=== PATIENT | female | born 1950 | race Caucasian/White ===

== ENCOUNTER 2020-10-28 11:04 | Inpatient (IN) ==
--- NOTE | 2020-10-28 13:09 | Emergency Department Note ---
Fall HPI General Chief Complaint: Fall Stated Complaint: fall Time Seen by Provider: 10/28/20 11:12 Source: patient Mode of arrival: ambulatory History of Present Illness HPI Narrative: Patient is a 70-year-old lady who arrives emergency department fall. History is provided by paramedics permission obtained from the patient's metal products fabricator assembler as well as the patient herself. The patient fell around 11:00 last night and paramedics were called for lift assist to her house. They assisted her to her feet and she declined transport to the hospital. She fell once again at some point in the night her low she cannot remember when. Her metal products fabricator assembler arrived to find her on the floor once again so she called 911 and the patient was transported to the emergency department. Currently, she is experiencing pain in her left hip. She denies any other obvious injuries. Patient's metal products fabricator assembler does note that she has seemed more confused than usual lately. The patient says she has been wearing the same undergarments for the past week but the metal products fabricator assembler points out that the patient has daily help and has certainly been assisted with changing several times in the past week. Related Data Home Medications Medication Instructions Recorded Confirmed albuterol sulfate 2 puff INH Q4HP PRN 03/08/17 10/28/20 ipratropium bromide 1 puff INH BID 03/08/17 10/28/20 Previous Rx's Medication Instructions Recorded insulin aspart U-100 100 unit/mL 4 unit SUB-Q .Before Meal #15 ml 06/11/19 (3 mL) subcutaneous pen blood sugar diagnostic #100 each 02/01/20 blood-glucose meter #1 each 02/01/20 levothyroxine 137 mcg tablet 137 mcg PO QDAY #90 tab 02/07/20 clopidogrel 75 mg tablet 75 mg PO DAILY #90 tab 05/02/20 montelukast 10 mg tablet See Rx Instructions .ROUTE 05/15/20 .COMPLEX #90 tab famotidine 20 mg tablet See Rx Instructions .ROUTE 05/22/20 .COMPLEX #180 tab lovastatin 20 mg tablet See Rx Instructions .ROUTE 05/22/20 .COMPLEX #90 tab tramadol 50 mg tablet 100 mg PO QID PRN #120 tab 08/14/20 allopurinol 100 mg tablet See Rx Instructions .ROUTE 09/07/20 .COMPLEX #90 tab gabapentin 600 mg tablet See Rx Instructions .ROUTE 09/25/20 .COMPLEX #270 tab cholecalciferol (vitamin D3) 100 4,000 unit PO QDAY #90 cap 10/10/20 mcg (4,000 unit) capsule ferrous sulfate 325 mg (65 mg 325 mg PO QDAY #90 tab 10/10/20 iron) tablet Allergies Allergy/AdvReac Type Severity Reaction Status Date / Time Penicillins Allergy Severe Anaphylaxis Verified 10/10/20 14:08 hydrogen peroxide Allergy Intermediate "chews Verified 10/10/20 14:08 skin up" nitroglycerin AdvReac Severe Hypotension Verified 10/10/20 14:08 methadone [Methadone] AdvReac Unknown Other Verified 10/10/20 14:08 plastic Allergy Intermediate Swelling Uncoded 10/10/20 14:08 Review of Systems ROS ROS Narrative: Narrative: All systems ED: reviewed and negative except as stated. Constitutional: Denies fever and chills Cardiovascular: Denies chest pain Respiratory: Denies cough Gastrointestinal: Denies abdominal pain PFSH Narrative Patient History Narrative: Narrative: Medical/Surgical/Family History All Active Problems (Updated 10/28/20 @ 15:42 by Roly Deras DO) Fall (Acute) Contusion of knee, left (Acute) Contusion of hip, left (Acute) Acute renal failure (Acute) Acute dehydration (Acute) Acute UTI (Acute) Gross hematuria (Acute) Vitamin D deficiency (Chronic) Left knee pain (Acute) Hypotensive episode (Acute) Dizziness (Acute) Iron deficiency anemia (Chronic) Secondary hyperparathyroidism of renal origin (Chronic) Anemia in stage 3b chronic kidney disease (Acute) Solitary kidney, acquired (Chronic) Chronic kidney disease (CKD) stage G3b/A2, moderately decreased glomerular filtration rate (GFR) between 30-44 mL/min/1.73 square meter and albuminuria creatinine ratio between 30-299 mg/g (Chronic) History of surgery (Acute) Hematuria (Acute) Postoperative complication of skin involving drainage from surgical wound (Acute) Initial Medicare annual wellness visit (Acute) Albuminuria (Chronic) Cancer of kidney (Chronic) Chronic ear infection (Chronic) intermediate project manager (current) use of anticoagulants (Chronic) Low back pain (Chronic) Dementia, senile (Chronic) Long-term insulin use (Chronic) longterm (current) use of opiate analgesic (Chronic) Osteoarthritis of knees, bilateral (Chronic) Osteoarthritis of hips, bilateral (Chronic) DDD (degenerative disc disease), lumbar (Chronic) Neuropathy (Chronic) Gout (Chronic) Dementia (Chronic) Sinusitis (Acute) Carpal tunnel syndrome, bilateral (Chronic) Tobacco use (Chronic) Paresthesia (Acute) Sinus drainage (Chronic) P-ANCA and MPO antibodies positive (Acute) Weight loss (Chronic) Fatigue (Chronic) Thyroid disorder (Chronic) Palpitations (Chronic) Hypercholesterolemia (Chronic) FH: kidney cancer (Chronic) 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) Stroke (Chronic) Balance problem (Chronic) Asthma (Chronic) Osteoarthritis (Chronic) GERD (gastroesophageal reflux disease) (Chronic) Hypothyroidism (Chronic) Hyperlipidemia, mixed (Chronic) Hypertension (Chronic) Abnormal finding on breast imaging (Chronic) 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) Osteopenia (Chronic) Back pain (Chronic) Joint pain, knee (Chronic) Right hip pain (Chronic) Dry mouth (Chronic) Pain in right shoulder (Chronic) Ear infection (Chronic) Acute cystitis with hematuria (Chronic) Strain of right hip (Chronic) Urinary tract infection (Chronic) Medical History Abnormal finding on breast imaging Acute cystitis with hematuria Albuminuria Asthma Back pain Balance problem Cancer of kidney Transitional Cell Carpal tunnel syndrome, bilateral Chronic ear infection DDD (degenerative disc disease), lumbar Dementia Dementia, senile Dizziness Dry mouth Ear infection left Fatigue FH: kidney cancer GERD (gastroesophageal reflux disease) Gout Hypercholesterolemia Hyperlipidemia, mixed Hypertension Hypotensive episode Hypothyroidism Joint pain, knee longterm (current) use of anticoagulants intermediate project manager (current) use of opiate analgesic Long-term insulin use Low back pain 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 cerebral infarction Neuropathy Osteoarthritis Osteoarthritis of hips, bilateral Osteoarthritis of knees, bilateral Osteopenia P-ANCA and MPO antibodies positive Pain in right shoulder Palpitations Paresthesia Right hip pain Sinus drainage Stroke Thyroid disorder Tobacco use Tobacco use Type 2 diabetes mellitus with polyneuropathy Weight loss Surgical History History of appendectomy (~1978) History of cholecystectomy (~1999) History of hysterectomy (~1978) History of surgery 08/10/2019-right ureterectomy History of surgery Tumors removed around bladder 08/2019 Dr. Jenaro Hayward History of tonsillectomy (~1954) S/p nephrectomy right Family History Father Colon cancer Heart disease Prostate cancer Brother Thyroid disorder Sister Multiple sclerosis Mother Heart disease Social History Smoking Status: Current every day smoker Alcohol Intake Frequency: holiday/special occasion only Substance Use: does not use Exam Narrative Narrative: Gen -patient is awake and alert and in no acute distress. HEENT -head is atraumatic. There is no conjunctival pallor or scleral icterus. CV -S1-S2 regular rate and rhythm. Resp -breathing is nonlabored. Lungs are clear to auscultation bilaterally. There is no cyanosis. Derm -skin is warm and dry. MSK -there is mild tenderness palpation of the left hip. Patient has limited flexion and external rotation of her hip due to pain. There is no palpable underlying bony deformity. Patient's left knee and ankle are nontender to palpation Psych -patient has appropriate affect. Neuro -patient has questions appropriately and is oriented to person place and situation. She thinks the year is 2021. There is no dysarthria or aphasia. There is no facial muscular asymmetry. Extraocular motion is intact. Tongue protrudes in the midline. Palate elevates symmetrically. Shoulder shrug is symmetric. Muscle strength is 4 out of 5 in the left lower extremity. Muscle strength is 5 out of 5 in all other extremities. Peripheral sensation is grossly intact to light touch bilaterally. There is no zufs-[id number] abnormality. There is no [id number] abnormality. NIH stroke scale is 1. Course Vital Signs Vital signs: Vital Signs Temperature 97.8 F 10/28/20 11:06 Pulse Rate 103 H 10/28/20 11:06 Respiratory Rate 18 10/28/20 11:06 Pulse Oximetry (%) 94 10/28/20 11:06 Temperature 97.8 F 10/28/20 11:06 Pulse Rate 96 H 10/28/20 15:01 Respiratory Rate 18 10/28/20 12:44 Blood Pressure 141/70 10/28/20 15:01 Pulse Oximetry (%) 95 10/28/20 15:01 [facility] Narrative Medical decision making narrative: Patient presents following a fall. She had very poor recollection of the events of the fall so obtain imaging of her brain and neck that does not reveal any acute intracranial hemorrhage or cervical spine fracture. Patient was experiencing some pain in her left hip. X-rays we re negative however, given her persistent pain and recurrent falls I obtained a CT scan to evaluate for possible occult fracture. This does not reveal an occult fracture but does reveal an exophytic bladder mass and mild left-sided hydronephrosis. Patient's labs remarkable for new renal failure without hyperkalemia. She also has significant pyuria. She has reported confusion per her home health aide although on my exam she is minimally confused. I think it may be a contribution of uremia and/or urinary tract infection causing this. Symptoms do not seem consistent with ischemic stroke or meningitis. I discussed the test results with the patient. She is agreeable with the plan for admi ssion and further hydration and evaluation. I discussed the patient's history examination and diagnostic findings with Dr. Barros, who agrees with the plan of care and accepts admission. Critical care time I provided at least 31 minutes of critical care time. This was separate from any separately billable procedures. The patient was given IV fluids to treat her acute renal failure. She was given IV antibiotics to treat her UTI and prevent progression to sepsis. The patient was closely monitored for response to treatment and stability of vital signs throughout their emergency department stay. Lab Data Lab results reviewed: Yes I reviewed the patient's lab results. Result diagrams: 10/28/20 11:13 Labs: Lab Results 10/28/20 10/28/20 10/28/20 Range/Units 11:13 11:13 11:14 WBC 12.3 H (4.5-11.0) K/mcL RBC 4.98 (4.00-5.20) M/mcL Hgb 12.4 (12.0-15.0) g/dL Hct 40.2 (36.0-48.0) % MCV 80.7 (80.0-100.0) fL MCH 24.9 L (26.0-34.0) pg MCHC 30.8 L (31.0-36.0) g/dL RDW 16.2 H (11.5-14.5) % Plt Count 325 (140-440) K/mcL MPV 10.2 (7.4-10.4) fL Neut % (Auto) 86.2 H (38.0-78.0) % Lymph % (Auto) 5.9 L (15.0-49.0) % [place] % (Auto) 6.6 (1.0-12.0) % Eos % (Auto) 0.8 (0.0-7.0) % Baso % (Auto) 0.5 (0.0-2.0) % Lymph # (Auto) 0.73 L (1.50-4.80) K/mcL [place] # (Auto) 0.81 (0.10-0.90) K/mcL Eos # (Auto) 0.10 (0.00-0.70) K/mcL Baso # (Auto) 0.06 (0.00-0.20) K/mcL Absolute Neutrophils 10.57 H (1.80-8.00) K/mcL PT 15.5 H (11.9-14.5) sec INR 1.2 H (0.9-1.1) Total Creatine Kinase 295 H (24-170) U/L Urine Color Urine Appearance (Clear) Urine pH (5.0-9.0) Ur Specific [place] (1.000-1.035) Urine Protein (Negative) mg/dL Urine Glucose (UA) (Negative) mg/dL Urine Ketones (Negative) mg/dL Urine Occult Blood (Negative) song/mcL Urine Nitrate (Negative) Urine Bilirubin (Negative) mg/dL Urine Urobilinogen mg/dL Ur Leukocyte Esterase (Negative) /ug Urine RBC (0-3) /hpf Urine WBC (0-4) /hpf Ur Squamous Epith Cells (0-4) /hpf Triple Phos Crystals (None) /hpf Urine Bacteria (0) /hpf Urine Mucus (None) /hpf Ur Culture Indicated? 10/28/20 Range/Units 12:49 WBC (4.5-11.0) K/mcL RBC (4.00-5.20) M/mcL Hgb (12.0-15.0) g/dL Hct (36.0-48.0) % MCV (80.0-100.0) fL MCH (26.0-34.0) pg MCHC (31.0-36.0) g/dL RDW (11.5-14.5) % Plt Count (140-440) K/mcL MPV (7.4-10.4) fL Neut % (Auto) (38.0-78.0) % Lymph % (Auto) (15.0-49.0) % [place] % (Auto) (1.0-12.0) % Eos % (Auto) (0.0-7.0) % Baso % (Auto) (0.0-2.0) % Lymph # (Auto) (1.50-4.80) K/mcL [place] # (Auto) (0.10-0.90) K/mcL Eos # (Auto) (0.00-0.70) K/mcL Baso # (Auto) (0.00-0.20) K/mcL Absolute Neutrophils (1.80-8.00) K/mcL PT (11.9-14.5) sec INR (0.9-1.1) Total Creatine Kinase (24-170) U/L Urine Color Yellow Urine Appearance Clear (Clear) Urine pH > 9.0 (5.0-9.0) Ur Specific [place] 1.010 (1.000-1.035) Urine Protein >=300 A (Negative) mg/dL Urine Glucose (UA) Negative (Negative) mg/dL Urine Ketones 5(trace) A (Negative) mg/dL Urine Occult Blood 2+(moderate) A (Negative) song/mcL Urine Nitrate Negative (Negative) Urine Bilirubin Negative (Negative) mg/dL Urine Urobilinogen Normal mg/dL Ur Leukocyte Esterase 3+(large) A (Negative) /ug Urine RBC 20 H (0-3) /hpf Urine WBC 180 H (0-4) /hpf Ur Squamous Epith Cells 1 (0-4) /hpf Triple Phos Crystals Mod A (None) /hpf Urine Bacteria Few A (0) /hpf Urine Mucus Few A (None) /hpf Ur Culture Indicated? yes ED POC Tests ED POC Tests: KELVIN - SARS Antigen Negative EKG Data EKG #1: EKG attestation: Yes I reviewed and interpreted this EKG. EKG results narrative: EKG performed at 11:38 AM: Sinus rhythm, rate 97. Normal P wave and QRS morphology. There is [address] depression in V4 through V6. T waves are inverted throughout the precordial leads. Normal SC QRS and QTc duration. There is no evidence of Brugada, Nntsk-Ystsoourk-Tbgef, HOCM or arrhythmogenic right ventricular dysplasia. No old EKG immediately available for comparison. EKG was interpreted by me. Discharge Plan Patient/Caregiver Discharge Instructions Pt seen by CUPOLA PATCHER HELPER/PA only: No Clinical Impression: Acute renal failure, Acute dehydration, Acute UTI Patient Disposition: Xfer As Inpt ([facility]) Condition: Fair Follow up with: Yury Valdez MD [Primary Care Provider] - Prescriptions: No Action insulin aspart U-100 [Novolog Flexpen U-100 Insulin] 100 unit/mL (3 mL) insulin pen 4 unit SUB-Q .Before Meal Qty: 15 RF: 4 (DME) blood-glucose meter [OneTouch Ultra2 Meter] Misc See Rx Instructions .ROUTE .MEDSUPPLY Qty: 1 RF: 0 (DME) OneTouch Ultra Blue Test Strip Strip See Rx Instructions .ROUTE .MEDSUPPLY Qty: 100 RF: 11 levothyroxine 137 mcg tablet 137 mcg PO QDAY Qty: 90 RF: 3 clopidogrel 75 mg tablet 75 mg PO DAILY Qty: 90 RF: 4 montelukast 10 mg tablet See Rx Instructions .ROUTE .COMPLEX Qty: 90 RF: 1 famotidine 20 mg tablet See Rx Instructions .ROUTE .COMPLEX Qty: 180 RF: 0 lovastatin 20 mg tablet See Rx Instructions .ROUTE .COMPLEX Qty: 90 RF: 4 tramadol 50 mg tablet 100 mg PO QID PRN (Reason: Pain) Qty: 120 RF: 2 allopurinol 100 mg tablet See Rx Instructions .ROUTE .COMPLEX Qty: 90 RF: 0 gabapentin 600 mg tablet See Rx Instructions .ROUTE .COMPLEX Qty: 270 RF: 0 cholecalciferol (vitamin D3) 100 mcg (4,000 unit) capsule 4,000 unit PO QDAY Qty: 90 RF: 4 ferrous sulfate 325 mg (65 mg iron) tablet 325 mg PO QDAY Qty: 90 RF: 4 albuterol sulfate 1 PUFF inhaler 2 puff INH Q4HP PRN (Reason: Shortness Of Breath) RF: 0 ipratropium bromide 1 PUFF inhaler 1 puff INH BID RF: 0
[2020-10-28] MEDS ORDERED: 0.9 % SODIUM CHLORIDE 1,000 ML IV ONE (13:18)
[2020-10-28] MEDS ORDERED: ACETAMINOPHEN 325 MG TABLET PO ONE (13:53)
[2020-10-28 15:13] LABS: INR 1.2 (0.9-1.1); Prothrombin Time 15.5 sec (11.9-14.5)
[2020-10-28 15:20] LABS: Appearance,Urine Clear (Clear); Bacteria,Urine Few /hpf (0); Bilirubin,Urine Negative (Negative); Color,Urine Yellow; Culture Indicated,Urine yes; Glucose,Urine (UA) Negative (Negative); Ketones,Urine 5(Trace) mg/dL (Negative); Leukocyte Esterase,Urine 3+(Large) /ug (Negative); Mucus,Urine Few /hpf; Nitrate,Urine Negative (Negative); PH,Urine > 9.0 (5.0-9.0); Protein,Urine >=300 mg/dL (Negative); Triple Phosphate Crystal,Urine Mod /hpf; Urine Blood 2+(Moderate) ery/mcL (Negative); Urine RBC 20 /hpf (0-3); Urine Squamous Epithelial Cell 1 /hpf (0-4); Urine WBC 180 /hpf (0-4); Urobilinogen,Urine Normal
[2020-10-28 15:24] LABS: Basophils # (Auto) 0.06 K/mcL (0.00-0.20); Basophils % (Auto) 0.5 % (0.0-2.0); Eosinophils % (Auto) 0.8 % (0.0-7.0); Hematocrit 40.2 % (36.0-48.0); Hemoglobin 12.4 g/dL (12.0-15.0); Lymphocytes # (Auto) 0.73 K/mcL (1.50-4.80); Lymphocytes % (Auto) 5.9 % (15.0-49.0); Mean Cell Volume 80.7 fL (80.0-100.0); Mean Corpuscular HGB Conc 30.8 g/dL (31.0-36.0); Mean Platelet Volume 10.2 fL (7.4-10.4); Monocytes # (Auto) 0.81 K/mcL (0.10-0.90); Monocytes % (Auto) 6.6 % (1.0-12.0); Neutrophils % (Auto) 86.2 % (38.0-78.0); Platelet Count 325 K/mcL (140-440); RBC 4.98 M/mcL (4.00-5.20); Red Cell Distribution Width 16.2 % (11.5-14.5); WBC 12.3 K/mcL (4.5-11.0)
--- NOTE | 2020-10-28 15:24 | Cat Scan Report ---
History: Fell with severe pelvic or back pain, status post prior right-sided nephrectomy, renal failure TECHNIQUE: The patient was imaged without contrast in axial plane at 2.5 mm intervals from the top of L2 to the proximal shaft of the femurs. Sagittal and coronal reformats were created. Radiation exposure was limited using dose reduction technology. FINDINGS: No pelvic or hip fracture present. There is mild osteoarthritis in both hips. SI joints are normal in width and there is minor arthritis. A moderate levoscoliotic curvature is present in the lumbar spine with the apex at L2-3. There is mild lateral wedging on the right side of the bodies of L2 and L3, related to the scoliosis. Severe disc space narrowing is present from L1-2 through L5-S1. There is no acute spinal fracture and the visualized portion of the spine. No lytic or blastic bone lesion are present. There are clips in the right renal fossa following a prior right-sided nephrectomy. The clips are causing significant beam hardening artifact but there is no gross residual or recurrent tumor in the renal fossa.. There is mild hydronephrosis in the left kidney with dilatation of the pelvis and infundibula. However, the ureter is normal in caliber. There are several stones in the lower third of the left kidney. The largest measures 1.2 cm. There is no stone in the renal pelvis or ureter to account for the hydronephrosis. There is a 1.3 cm nodular density in the cortex anteriorly and the lower third of the left kidney. This is probably the cyst which was seen on a prior ultrasound done on 12/10/17. It has enlarged. 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 This extends posteriorly to the base of the bladder and is very close to the left ureterovesical junction. It also extends exophytically superiorly and laterally. It measures approximately 4.4 x 4.8 x 6.3 cm. It mimics a uterus. However, the patient has had a prior hysterectomy. This tumor is a new finding since the prior CT done on 06/09/19. 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 This may be related to bladder tumor in spite of the lack of dilatation of left ureter Dr. Deras was called with the report Interpreted and Authenticated by: Matt Bernstein 10/28/20
--- NOTE | 2020-10-28 15:33 | Cat Scan Report ---
History: Fell with head and neck injuries TECHNIQUE: The brain was imaged without contrast in axial plane at 2.5 mm intervals. Sagittal and coronal reformats were created. The radiation exposure was limited using dose reduction technology. FINDINGS: There are large confluent areas of abnormal decreased attenuation throughout the centrum semiovale in the frontal and parietal lobes. No cortical lesion is present. There is no apparent acute infarct. There is no hemorrhage or mass effect. No abnormal extra-axial fluid collection is present. There is mild atrophy, most apparent around the sylvian fissures. Bone windows show no skull fracture. The visualized sinuses are clear. The orbits are normal. Comparison with the prior CT done on 10/26/20 shows no change. IMPRESSION: No evidence of acute head injury Stable age-related degenerative changes Dr. Deras was called with the report Interpreted and Authenticated by: Matt Bernstein 10/28/20
[2020-10-28] MEDS ORDERED: cefTRIAXone 1 GM VIAL IV ONE ×2 (15:35→17:15)
--- NOTE | 2020-10-28 15:36 | Cat Scan Report ---
History: Fell with neck injury TECHNIQUE: The neck was imaged without contrast in axial plane at 2.5 mm intervals. Sagittal and coronal reformats were created. The radiation exposure was limited using dose reduction technology. FINDINGS: There is a flexion deformity at the neck. No fractures present. Nonunited secondary ossification center is present above the odontoid. The cervico-occipital junction is otherwise normal. There is severe disc space narrowing at C5-C6 and moderate narrowing at C6-7. C7-T1 is mildly narrowed. There are medium-sized spurs on the posterior border at C5-6 and there are large spurs arising from the uncinate processes bilaterally at this level. There is mild central canal stenosis and severe stenosis left-sided neural foramen. Right-sided foramen is moderately stenotic. There is milder stenosis of neural foramina at C6-7, left worse than right. Moderate arthritis is also present in the left side facet joint at C3-4 causing severe stenosis left-sided neural foramen. There is no paraspinal hematoma or mass. Comparison with the prior CT from 02/05/14 shows there has been progression of the arthritis. IMPRESSION: No acute spinal injury Degenerative disc disease and arthritis at multiple levels with the greatest degeneration at C5-C6 Dr. Deras was called with the report Interpreted and Authenticated by: Matt Bernstein 10/28/20
--- NOTE | 2020-10-28 15:40 | XRay Report ---
HISTORY: Fell with chest injury FINDINGS: Lateral view is suboptimal due to underpenetration. There is a vague haziness throughout the lung parenchyma in the left thorax. The right lung appears clear. The heart appears enlarged. However, the prior CT done on 06/12/20 shows there are large epicardial fat pads which may be creating the appearance of an enlarged heart on today's chest x-ray. There is no mediastinal widening. No pneumothorax or pleural effusion are present. Thoracic spine has a kyphoscoliotic curvature. IMPRESSION: Asymmetric appearance of the lungs with increased haziness in the left side. This may be partially artifactual due to the patient positioning and mild rotation. However, an inflammatory process should be considered. This is unlikely due to pulmonary vascular congestion. Interpreted and Authenticated by: Matt Bernstein 10/28/20
--- NOTE | 2020-10-28 15:45 | XRay Report ---
HISTORY: Fell with left hip injury FINDINGS: No fracture or dislocation are seen on plain film. The left hip joint is normal in width. There are very small spurs along the lateral border of the left greater trochanter. IMPRESSION: Normal exam Interpreted and Authenticated by: Matt Bernstein 10/28/20
--- NOTE | 2020-10-28 15:56 | Internal Med History&Physical ---
HPI History of Present Illness Patient information: Note initiated : 10/28/20 at 3:54 pm Service Date, if different from initiated Date: [] Patient: Breonna Zelaya 70 y/o F admitted on for fall. Chief Complaint: [] History of present illness: Ms. Zelaya is a 70 year female with a history of hypertension, diabetes mellitus type 2, chronic kidney disease stage IIIb, stroke, hypothyroidism, right renal cell carcinoma status post nephrectomy in 1999, right urethral carcinoma status post ureterectomy in 2019, mild dementia lives alone at home and has caregivers presenting to the ED after multiple falls at home. In the ED, the patient was found to have severe kidney injury during the work-up hip pain after the fall. Trauma work-up included CT head, CT cervical spine, hip x-rays, pelvic CT scan which did not show acute fractures. Chest x-ray did show an asymmetric appearance of the lung with increased haziness on the left side. Pelvic CT showed a large bladder mass, mild left hydronephrosis. Recent labs showed a markedly elevated creatinine relative to the patient's baseline. The patient was admitted for acute kidney injury, UTI, bladder mass work-up and generalized weakness. Review of systems Constitutional: no fever, fatigue, or weight loss Eyes: no vision changes or pain Cardiovascular: no chest pain, no palpitations Respiratory: no cough or dyspnea Gastrointestinal: no abdominal pain, no nausea, vomiting, or diarrhea Genitourinary: positive for dysuria and increased urinary frequency Musculoskeletal: no arthralgia or myalgia Integumentary: no skin lesion or wound Neurological: no focal weakness or numbness Psychiatric: no anxiety or depression Physical exam Head: Atraumatic, normal inspection. Eyes: normal appearance, no scleral icterus. Neck: full ROM Respiratory: no respiratory distress. Cardiovascular: normal rate and rhythm, S1, S2. GI/Abdominal: soft, nontender, no guarding. Extremities: full range of motion, nontender. Neurological: CN II-XII intact, intact motor, intact sensation. Psychiatric: normal mood. Skin: stable hydradenitis suppurativa PFSH PFSH All Active Problems (Updated 10/28/20 @ 16:41 by Cristopher Cadena MD) Mass of urinary bladder (Acute) Fall (Acute) Contusion of knee, left (Acute) Contusion of hip, left (Acute) Acute renal failure (Acute) Acute dehydration (Acute) Acute UTI (Acute) Gross hematuria (Acute) Vitamin D deficiency (Chronic) Left knee pain (Acute) Hypotensive episode (Acute) Dizziness (Acute) Iron deficiency anemia (Chronic) Secondary hyperparathyroidism of renal origin (Chronic) Anemia in stage 3b chronic kidney disease (Acute) Solitary kidney, acquired (Chronic) Chronic kidney disease (CKD) stage G3b/A2, moderately decreased glomerular filtration rate (GFR) between 30-44 mL/min/1.73 square meter and albuminuria creatinine ratio between 30-299 mg/g (Chronic) History of surgery (Acute) Hematuria (Acute) Postoperative complication of skin involving drainage from surgical wound (Acute) Initial Medicare annual wellness visit (Acute) Albuminuria (Chronic) Cancer of kidney (Chronic) Chronic ear infection (Chronic) retirement (current) use of anticoagulants (Chronic) Low back pain (Chronic) Dementia, senile (Chronic) Long-term insulin use (Chronic) retirement (current) use of opiate analgesic (Chronic) Osteoarthritis of knees, bilateral (Chronic) Osteoarthritis of hips, bilateral (Chronic) DDD (degenerative disc disease), lumbar (Chronic) Neuropathy (Chronic) Gout (Chronic) Dementia (Chronic) Sinusitis (Acute) Carpal tunnel syndrome, bilateral (Chronic) Tobacco use (Chronic) Paresthesia (Acute) Sinus drainage (Chronic) P-ANCA and MPO antibodies positive (Acute) Weight loss (Chronic) Fatigue (Chronic) Thyroid disorder (Chronic) Palpitations (Chronic) Hypercholesterolemia (Chronic) FH: kidney cancer (Chronic) 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) Stroke (Chronic) Balance problem (Chronic) Asthma (Chronic) Osteoarthritis (Chronic) GERD (gastroesophageal reflux disease) (Chronic) Hypothyroidism (Chronic) Hyperlipidemia, mixed (Chronic) Hypertension (Chronic) Abnormal finding on breast imaging (Chronic) 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) Osteopenia (Chronic) Back pain (Chronic) Joint pain, knee (Chronic) Right hip pain (Chronic) Dry mouth (Chronic) Pain in right shoulder (Chronic) Ear infection (Chronic) Acute cystitis with hematuria (Chronic) Strain of right hip (Chronic) Urinary tract infection (Chronic) Medical History Abnormal finding on breast imaging Acute cystitis with hematuria Albuminuria Asthma Back pain Balance problem Cancer of kidney Transitional Cell Carpal tunnel syndrome, bilateral Chronic ear infection DDD (degenerative disc disease), lumbar Dementia Dementia, senile Dizziness Dry mouth Ear infection left Fatigue FH: kidney cancer GERD (gastroesophageal reflux disease) Gout Hypercholesterolemia Hyperlipidemia, mixed Hypertension Hypotensive episode Hypothyroidism Joint pain, knee manager long term care (current) use of anticoagulants manager long term care (current) use of opiate analgesic Long-term insulin use Low back pain 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 cerebral infarction Neuropathy Osteoarthritis Osteoarthritis of hips, bilateral Osteoarthritis of knees, bilateral Osteopenia P-ANCA and MPO antibodies positive Pain in right shoulder Palpitations Paresthesia Right hip pain Sinus drainage Stroke Thyroid disorder Tobacco use Tobacco use Type 2 diabetes mellitus with polyneuropathy Weight loss Surgical History History of appendectomy (~1978) History of cholecystectomy (~1999) History of hysterectomy (~1978) History of surgery 08/10/2019-right ureterectomy History of surgery Tumors removed around bladder 08/2019 Dr. Jenaro Hayward History of tonsillectomy (~1954) S/p nephrectomy right Family History Father Colon cancer Heart disease Prostate cancer Brother Thyroid disorder Sister Multiple sclerosis Mother Heart disease Social History marital status: occupational status: disabled physical activity: walking alcohol intake frequency: holiday/special occasion only substance use type: does not use MEDS/ALLERGIES Home Medications and Allergies Home Medications Medication Instructions Recorded Confirmed Type albuterol sulfate 2 puff INH Q4HP PRN 03/08/17 10/28/20 History ipratropium bromide 1 puff INH BID 03/08/17 10/28/20 History insulin aspart U-100 100 unit/mL 4 unit SUB-Q .Before Meal #15 ml 06/11/19 10/28/20 Rx (3 mL) subcutaneous pen blood sugar diagnostic #100 each 02/01/20 10/28/20 Rx blood-glucose meter #1 each 02/01/20 10/28/20 Rx levothyroxine 137 mcg tablet 137 mcg PO QDAY #90 tab 02/07/20 10/28/20 Rx clopidogrel 75 mg tablet 75 mg PO DAILY #90 tab 05/02/20 10/28/20 Rx montelukast 10 mg tablet See Rx Instructions .ROUTE 05/15/20 10/28/20 Rx .COMPLEX #90 tab famotidine 20 mg tablet See Rx Instructions .ROUTE 05/22/20 10/28/20 Rx .COMPLEX #180 tab lovastatin 20 mg tablet See Rx Instructions .ROUTE 05/22/20 10/28/20 Rx .COMPLEX #90 tab tramadol 50 mg tablet 100 mg PO QID PRN #120 tab 08/14/20 10/28/20 Rx allopurinol 100 mg tablet See Rx Instructions .ROUTE 09/07/20 10/28/20 Rx .COMPLEX #90 tab gabapentin 600 mg tablet See Rx Instructions .ROUTE 09/25/20 10/28/20 Rx .COMPLEX #270 tab cholecalciferol (vitamin D3) 100 4,000 unit PO QDAY #90 cap 10/10/20 10/28/20 Rx mcg (4,000 unit) capsule ferrous sulfate 325 mg (65 mg 325 mg PO QDAY #90 tab 10/10/20 10/28/20 Rx iron) tablet Allergies Allergy/AdvReac Type Severity Reaction Status Date / Time Penicillins Allergy Severe Anaphylaxis Verified 10/10/20 14:08 hydrogen peroxide Allergy Intermediate "chews Verified 10/10/20 14:08 skin up" nitroglycerin AdvReac Severe Hypotension Verified 10/10/20 14:08 methadone [Methadone] AdvReac Unknown Other Verified 10/10/20 14:08 plastic Allergy Intermediate Swelling Uncoded 10/10/20 14:08 EXAM Constitutional Vitals: Temp Pulse Resp BP Pulse Ox 97.8 F 96 H 18 137/101 91 10/28/20 11:06 10/28/20 15:31 10/28/20 12:44 10/28/20 15:31 10/28/20 15:31 DATA Data Completed and Pending Labs: Labs from last 24 hours 10/28/20 10/28/20 10/28/20 12:49 11:14 11:13 WBC RBC Hgb Hct POC Hct Pending MCV MCH MCHC RDW Plt Count MPV Neut % (Auto) Lymph % (Auto) [place] % (Auto) Eos % (Auto) Baso % (Auto) Lymph # (Auto) [place] # (Auto) Eos # (Auto) Baso # (Auto) Absolute Neutrophils PT INR POC Sodium Pending POC Potassium Pending POC Chloride Pending POC Total CO2 Pending POC BUN Pending POC Creatinine Pending POC Glucose Pending POC WB Ioniz Calcium Pending Total Creatine Kinase 295 H Urine Color Yellow Urine Appearance Clear Urine pH > 9.0 Ur Specific [place] 1.010 Urine Protein >=300 A Urine Glucose (UA) Negative Urine Ketones 5(trace) A Urine Occult Blood 2+(moderate) A Urine Nitrate Negative Urine Bilirubin Negative Urine Urobilinogen Normal Ur Leukocyte Esterase 3+(large) A Urine RBC 20 H Urine WBC 180 H Ur Squamous Epith Cells 1 Triple Phos Crystals Mod A Urine Bacteria Few A Urine Mucus Few A Ur Culture Indicated? yes 10/28/20 10/28/20 11:13 11:13 WBC 12.3 H RBC 4.98 Hgb 12.4 Hct 40.2 POC Hct MCV 80.7 MCH 24.9 L MCHC 30.8 L RDW 16.2 H Plt Count 325 MPV 10.2 Neut % (Auto) 86.2 H Lymph % (Auto) 5.9 L [place] % (Auto) 6.6 Eos % (Auto) 0.8 Baso % (Auto) 0.5 Lymph # (Auto) 0.73 L [place] # (Auto) 0.81 Eos # (Auto) 0.10 Baso # (Auto) 0.06 Absolute Neutrophils 10.57 H PT 15.5 H INR 1.2 H POC Sodium POC Potassium POC Chloride POC Total CO2 POC BUN POC Creatinine POC Glucose POC WB Ioniz Calcium Total Creatine Kinase Urine Color Urine Appearance Urine pH Ur Specific [place] Urine Protein Urine Glucose (UA) Urine Ketones Urine Occult Blood Urine Nitrate Urine Bilirubin Urine Urobilinogen Ur Leukocyte Esterase Urine RBC Urine WBC Ur Squamous Epith Cells Triple Phos Crystals Urine Bacteria Urine Mucus Ur Culture Indicated? A/P Narrative A/P Narrative: Assessment: 70 year female with a history of hypertension, diabetes mellitus type 2, chronic kidney disease stage IIIb, stroke, hyp othyroidism, right renal cell carcinoma status post nephrectomy in 1999, right urethral carcinoma status post ureterectomy in 2019, mild dementia who lives alone at home was brought to the ED by EMS after multiple falls at home and found to have an acute kidney injury, UTI, bladder mass associated with left hydronephrosis. #Acute on chronic kidney disease stage 3b injury #Left hydronephrosis #Large bladder mass #Acute cystitis #Asymmetric left lung opacity, possibly positional #Mildly elevated CK #Multiple falls at home #Diabetes mellitus type II #Hypertension #Hx of stroke #Gout #Dementia, mild #Pannus #Obesity BMI 40 #Hx of severe penicillin allergy #Hx of right renal cell carcinoma s/p nephrectomy 1999 #Hx of right urothelial carcinoma s/p ureterectomy 2019 #Hx of positive MPO-ANCA Plan -IV fluid, follow renal function, urine output, renally dose meds. -Ciprofloxacin IV BID d/t hx of severe penicillin allergy. -Check C3, C4, CRP -Follow urine culture, adjust abx accordingly. -Urology consult. -Hold home Gabapentin, Tramadol, Lovastatin for now. -Renally adjusted home Allopurinol, Pepcid. -Continue home Plavix, Levothyroxine, Singulair. -SSI-low. -Nystatin topical for pannus. -Renal diet, NPO after midnight. -PT consult -Consider nephrology consult. -DVT ppx: heparin SQ -Code status: -Disposition: TBD Time Spent With Patient Time: Total time spent is greater than 50% in coordination of care (as documented) at patient's floor/unit and/or counseling patient:
[2020-10-28] MEDS ORDERED: DEXTROSE 31 GM ORAL.SUSP PO PRN (17:15)
[2020-10-28] MEDS ORDERED: DEXTROSE 50% 50 ML VIAL IV PRN (17:15)
[2020-10-28] MEDS ORDERED: ONDANSETRON 4 MG/2 ML VIAL IV PRN (17:15)
[2020-10-28] MEDS ORDERED: ALBUTEROL SULFATE 200 PUFF INHALER INH PRN (17:15)
[2020-10-28] MEDS: 0.9 % SODIUM CHLORIDE 1,000 ML IV SCH (18:01)
[2020-10-28] MEDS: INSULIN LISPRO 1 UNIT/0.01 ML UNIT SQ SCH ×2 (18:30→21:46)
[2020-10-28] MEDS ORDERED: cefTRIAXone 1 GM VIAL ONE (19:12)
[2020-10-28 19:16] LABS: Complement C3 143.4 mg/dL (90.0-180.0)
[2020-10-28] MEDS: CIPROFLOXACIN 400 MG/200 ML BAG IV SCH (20:40)
[2020-10-28] MEDS ORDERED: IPRATROPIUM BROMIDE INH SCH (21:00)
--- NOTE | 2020-10-28 21:16 | EKG ---
[facility] Test Date: 2020-10-28 Pat Name: Breonna Zelaya Department: ED Room: Gender: Female Registration Clerk: SYLWIA : [id number] Requested By: Roly Deras Order Number: [id number] Reading MD: Onofre Zhu M.D. Measurements Intervals [place] Rate: 97 P: 65 RI: 143 QRS: 15 QRSD: 103 T: 242 QT: 331 QTc: 421 Interpretive Statements Age not entered, assumed to be 48 years old for purpose of ECG interpretation Sinus rhythm Nonspecific T abnrm, anterolateral leads NO PRIOR TRACING FOR COMPARISON ABNORMAL ECG Electronically Signed On 10-28-2020 21:15:47 PDT by Onofre Zhu M.D. /store/T-/-[email or web address]/ecg/[id number]
[2020-10-28] MEDS: DOCUSATE SODIUM 100 MG CAPSULE PO SCH (21:43)
[2020-10-28] MEDS: HEPARIN 5,000 UNIT/ML VIAL SQ SCH (21:46)
[2020-10-28] MEDS: MONTELUKAST 10 MG TABLET PO SCH (21:47)
[2020-10-28] MEDS: 0.9 % SODIUM CHLORIDE 10 ML SYRINGE IV SCH (21:48)
[2020-10-28] MEDS: FAMOTIDINE 20 MG TABLET PO SCH (21:48)
[2020-10-28] MEDS: SENNOSIDES 1 TABLET PO SCH (21:48)
[2020-10-28] MEDS: NYSTATIN POWDER BOTTLE 15GM TOPICAL SCH (23:00)
[2020-10-29] MEDS: 0.9 % SODIUM CHLORIDE 1,000 ML IV SCH ×3 (04:45→22:19)
[2020-10-29] MEDS: 0.9 % SODIUM CHLORIDE 10 ML SYRINGE IV SCH ×3 (04:48→21:11)
[2020-10-29] MEDS: INSULIN LISPRO 1 UNIT/0.01 ML UNIT SQ SCH ×4 (07:11→20:24)
[2020-10-29 07:31] LABS: Hematocrit 36.9 % (36.0-48.0); Hemoglobin 11.5 g/dL (12.0-15.0); Mean Cell Volume 80.6 fL (80.0-100.0); Mean Corpuscular HGB Conc 31.2 g/dL (31.0-36.0); Mean Platelet Volume 9.9 fL (7.4-10.4); Platelet Count 313 K/mcL (140-440); RBC 4.58 M/mcL (4.00-5.20); Red Cell Distribution Width 16.3 % (11.5-14.5); WBC 10.5 K/mcL (4.5-11.0)
[2020-10-29 07:41] LABS: Blood Urea Nitrogen 52 mg/dL (8-23); Calcium 8.2 mg/dL (8.6-10.4); Carbon Dioxide 19 mmol/L (22-30); Chloride 104 mmol/L (96-108); Glomerular Filtration Rate 9; Glucose 114 mg/dL (70-105)
[2020-10-29] MEDS: DOCUSATE SODIUM 100 MG CAPSULE PO SCH ×2 (08:15→20:05)
[2020-10-29] MEDS: CIPROFLOXACIN 400 MG/200 ML BAG IV SCH ×2 (08:29→20:01)
[2020-10-29] MEDS ORDERED: MIDAZOLAM 2 MG/2 ML VIAL ONE (08:56)
[2020-10-29] MEDS ORDERED: fentaNYL 100 MCG/2 ML VIAL IV ONE (08:56)
[2020-10-29] MEDS ORDERED: MAGNESIUM SULFATE 2 GM/50 ML BAG IV ONE (08:56)
[2020-10-29] MEDS ORDERED: PROPOFOL 200 MG/20 ML VIAL IV ONE (08:56)
[2020-10-29] MEDS ORDERED: DEXAMETHASONE 10 MG/ML VIAL ONE (08:56)
[2020-10-29] MEDS ORDERED: KETAMINE 50 MG/ML ML ONE (08:56)
[2020-10-29] MEDS ORDERED: LIDOCAINE HCL/PF 100 MG/5 ML SYRINGE IV ONE (08:56)
[2020-10-29] MEDS ORDERED: GLYCOPYRROLATE 0.2 MG/ML VIAL IV ONE (08:56)
[2020-10-29] MEDS ORDERED: ESMOLOL 100 MG/10 ML VIAL IV ONE (08:56)
[2020-10-29] MEDS ORDERED: ONDANSETRON 4 MG/2 ML VIAL ONE (08:56)
[2020-10-29] MEDS ORDERED: NON FORMULARY MEDICATION 1 DOSE MISCELL (Levothyroxine 137 mcg tablet) PO SCH (09:00)
[2020-10-29] MEDS ORDERED: IOVERSOL 20 ML VIAL IV ONE (09:10)
[2020-10-29] MEDS ORDERED: IOVERSOL 100 ML VIAL IJ ONE (09:23)
[2020-10-29 09:51] LABS: Anisocytosis 2+ (None Seen); Lymphocytes % 3 % (15-49); Monocytes % (Manual) 5 % (1-12); Platelet Estimate NORMAL (Normal); RBC Morphology ABNORMAL (Normal); Segmented Neutrophils % 92 % (38-78)
--- NOTE | 2020-10-29 09:58 | XRay Report ---
HISTORY: Recent fall with chest injury and nonspecific haziness in the lung parenchyma on yesterday's chest x-ray FINDINGS: A semierect portable x-ray was obtained. The patient is mildly rotated to the left and there is respiration motion artifact seen along the left diaphragm. There is no consolidating infiltrate. No congestive heart failure is seen. The heart size is within upper limits of normal. No chest wall lesion is seen. The haziness in the left lung on yesterday's exam is less apparent today. IMPRESSION: Improved aeration of the left lung Interpreted and Authenticated by: Matt Bernstein 10/29/20
--- NOTE | 2020-10-29 10:29 | General Surgery Consult Note ---
HPI Data of Consult Consult date: 10/28/20 Primary Care Provider: Yury Valdez MD Consult Narrative Chief complaint: Elevated creatinine with solitary kidney and bladder mass Reason for consult: Tissue diagnosis of mass History of present illness: This 70-year-old female came to the emergency room because of multiple falls. In the emergency room she was found to have a creatinine that is gone from 1.1 to 1.[address] showed a 4.4 x 4.8 x 6.3 bladder mass on the right wall and is surgically surgically absent right kidney. In reviewing her history she had a right nephrectomy for cancer in 1999. The tissue diagnosis is unknown. She had some mild dilation of the left renal pelvis and calyces but no dilation of the ureter and no sign of stones within the ureter. She did have some nonobstructing stones within the kidney. In reviewing her previous films there was no bladder mass in May 2020. 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 The bladder mass did cross over the midline toward the area of the left ureteral orifice but again there was no evidence of ureteral dilation. The plan is to take her to the operating room and obtain a tissue diagnosis from the bladder mass and stent the left side prophylactically as well as study the anatomy of the ureter itself. She also has a history of chronic kidney disease cc:: CC: Cristopher Cadena MD [facility] All Active Problems (Updated 10/29/20 @ 10:29 by Cristopher Cadena MD) Calculus of left kidney (Acute) Mass of urinary bladder (Acute) Fall (Acute) Contusion of knee, left (Acute) Contusion of hip, left (Acute) Acute renal failure (Acute) Acute dehydration (Acute) Acute UTI (Acute) Gross hematuria (Acute) Vitamin D deficiency (Chronic) Left knee pain (Acute) Hypotensive episode (Acute) Dizziness (Acute) Iron deficiency anemia (Chronic) Secondary hyperparathyroidism of renal origin (Chronic) Anemia in stage 3b chronic kidney disease (Acute) Solitary kidney, acquired (Chronic) Chronic kidney disease (CKD) stage G3b/A2, moderately decreased glomerular filtration rate (GFR) between 30-44 mL/min/1.73 square meter and albuminuria creatinine ratio between 30-299 mg/g (Chronic) History of surgery (Acute) Hematuria (Acute) Postoperative complication of skin involving drainage from surgical wound (Acute) Initial Medicare annual wellness visit (Acute) Albuminuria (Chronic) Cancer of kidney (Chronic) Chronic ear infection (Chronic) custodial (current) use of anticoagulants (Chronic) Low back pain (Chronic) Dementia, senile (Chronic) Long-term insulin use (Chronic) 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) Osteoarthritis of knees, bilateral (Chronic) Osteoarthritis of hips, bilateral (Chronic) DDD (degenerative disc disease), lumbar (Chronic) Neuropathy (Chronic) Gout (Chronic) Dementia (Chronic) Sinusitis (Acute) Carpal tunnel syndrome, bilateral (Chronic) Tobacco use (Chronic) Paresthesia (Acute) Sinus drainage (Chronic) P-ANCA and MPO antibodies positive (Acute) Weight loss (Chronic) Fatigue (Chronic) Thyroid disorder (Chronic) Palpitations (Chronic) Hypercholesterolemia (Chronic) FH: kidney cancer (Chronic) 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) Stroke (Chronic) Balance problem (Chronic) Asthma (Chronic) Osteoarthritis (Chronic) GERD (gastroesophageal reflux disease) (Chronic) Hypothyroidism (Chronic) Hyperlipidemia, mixed (Chronic) Hypertension (Chronic) Abnormal finding on breast imaging (Chronic) 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) Osteopenia (Chronic) Back pain (Chronic) Joint pain, knee (Chronic) Right hip pain (Chronic) Dry mouth (Chronic) Pain in right shoulder (Chronic) Ear infection (Chronic) Acute cystitis with hematuria (Chronic) Strain of right hip (Chronic) Urinary tract infection (Chronic) Medical History Abnormal finding on breast imaging Acute cystitis with hematuria Albuminuria Asthma Back pain Balance problem Cancer of kidney Transitional Cell Carpal tunnel syndrome, bilateral Chronic ear infection DDD (degenerative disc disease), lumbar Dementia Dementia, senile Dizziness Dry mouth Ear infection left Fatigue FH: kidney cancer GERD (gastroesophageal reflux disease) Gout Hypercholesterolemia Hyperlipidemia, mixed Hypertension Hypotensive episode Hypothyroidism Joint pain, knee custodial (current) use of anticoagulants custodial (current) use of opiate analgesic Long-term insulin use Low back pain 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 cerebral infarction Neuropathy Osteoarthritis Osteoarthritis of hips, bilateral Osteoarthritis of knees, bilateral Osteopenia P-ANCA and MPO antibodies positive Pain in right shoulder Palpitations Paresthesia Right hip pain Sinus drainage Stroke Thyroid disorder Tobacco use Tobacco use Type 2 diabetes mellitus with polyneuropathy Weight loss Surgical History History of appendectomy (~1978) History of cholecystectomy (~1999) History of hysterectomy (~1978) History of surgery 08/10/2019-right ureterectomy History of surgery Tumors removed around bladder 08/2019 Dr. Jenaro Hayward History of tonsillectomy (~1954) S/p nephrectomy right Family History Father Colon cancer Heart disease Prostate cancer Brother Thyroid disorder Sister Multiple sclerosis Mother Heart disease Social History marital status: occupational status: disabled physical activity: walking alcohol intake frequency: holiday/special occasion only substance use type: does not use MEDS/ALLERGIES Home Medications and Allergies Home Medications Medication Instructions Recorded Confirmed Type albuterol sulfate 2 puff INH Q4HP PRN 03/08/17 10/28/20 History ipratropium bromide 1 puff INH BID 03/08/17 10/28/20 History insulin aspart U-100 100 unit/mL 4 unit SUB-Q .Before Meal #15 ml 06/11/19 10/28/20 Rx (3 mL) subcutaneous pen blood sugar diagnostic #100 each 02/01/20 10/28/20 Rx blood-glucose meter #1 each 02/01/20 10/28/20 Rx levothyroxine 137 mcg tablet 137 mcg PO QDAY #90 tab 02/07/20 10/28/20 Rx clopidogrel 75 mg tablet 75 mg PO DAILY #90 tab 05/02/20 10/28/20 Rx tramadol 50 mg tablet 100 mg PO QID PRN #120 tab 08/14/20 10/28/20 Rx cholecalciferol (vitamin D3) 100 4,000 unit PO QDAY #90 cap 10/10/20 10/28/20 Rx mcg (4,000 unit) capsule ferrous sulfate 325 mg (65 mg 325 mg PO QDAY #90 tab 10/10/20 10/28/20 Rx iron) tablet allopurinol 100 mg PO TID 10/28/20 10/28/20 History famotidine 20 mg PO BID 10/28/20 10/28/20 History gabapentin 1,200 mg PO HS 10/28/20 10/28/20 History gabapentin 600 mg PO DAILY 10/28/20 10/28/20 History lovastatin 20 mg PO HS 10/28/20 10/28/20 History montelukast 10 mg PO HS 10/28/20 10/28/20 History Allergies Allergy/AdvReac Type Severity Reaction Status Date / Time Penicillins Allergy Severe Anaphylaxis Verified 10/10/20 14:08 hydrogen peroxide Allergy Intermediate "chews Verified 10/10/20 14:08 skin up" nitroglycerin AdvReac Severe Hypotension Verified 10/10/20 14:08 methadone [Methadone] AdvReac Unknown Other Verified 10/10/20 14:08 plastic Allergy Intermediate Swelling Uncoded 10/10/20 14:08 Physical Examination Vital Signs Vital signs: Temp Pulse Resp BP Pulse Ox 98.8 F 91 H 18 146/76 95 10/29/20 06:51 10/29/20 06:51 10/29/20 06:51 10/29/20 06:51 10/29/20 06:51 General physical appearance General physical exam: moderate pain (Pain is in the low back on both sides and her hips. There are some question as to whether this pain is from the recent falls.) ENT ENT exam: normal pinna and normal nares Cardiovascular Cardiovascular exam IM: Present normal rate and rhythm Respiratory Respiratory exam: normal expansion and normal respiratory effort Abdomen Abdomen: Present soft and distended (Obese) Integumentary Integumentary: Present no rash and no growths Musculoskeletal Musculoskeletal: Present normal posture Results Labs Result diagrams: 10/29/20 05:21 10/29/20 05:21 Labs: Abnormal lab results 10/28/20 10/28/20 10/28/20 Range/Units 11:13 11:13 11:13 WBC 12.3 H (4.5-11.0) K/mcL Hgb (12.0-15.0) g/dL MCH 24.9 L (26.0-34.0) pg MCHC 30.8 L (31.0-36.0) g/dL RDW 16.2 H (11.5-14.5) % Neut % (Auto) 86.2 H (38.0-78.0) % Lymph % (Auto) 5.9 L (15.0-49.0) % Lymph # (Auto) 0.73 L (1.50-4.80) K/mcL Seg Neutrophils % (38-78) % Lymphocytes % (15-49) % Absolute Neutrophils 10.57 H (1.80-8.00) K/mcL RBC Morphology (Normal) Anisocytosis (None Seen) PT 15.5 H (11.9-14.5) sec INR 1.2 H (0.9-1.1) Carbon Dioxide (22-30) mmol/L BUN (8-23) mg/dL Creatinine (0.6-1.1) mg/dL Glucose (70-105) mg/dL Calcium (8.6-10.4) mg/dL Total Creatine Kinase (24-170) U/L C-Reactive Protein 29.60 H (0.03-0.80) mg/dL Urine Protein (Negative) mg/dL Urine Ketones (Negative) mg/dL Urine Occult Blood (Negative) song/mcL Ur Leukocyte Esterase (Negative) /ug Urine RBC (0-3) /hpf Urine WBC (0-4) /hpf Triple Phos Crystals (None) /hpf Urine Bacteria (0) /hpf Urine Mucus (None) /hpf 10/28/20 10/28/20 10/29/20 Range/Units 11:14 12:49 05:21 WBC (4.5-11.0) K/mcL Hgb 11.5 L (12.0-15.0) g/dL MCH 25.1 L (26.0-34.0) pg MCHC (31.0-36.0) g/dL RDW 16.3 H (11.5-14.5) % Neut % (Auto) (38.0-78.0) % Lymph % (Auto) (15.0-49.0) % Lymph # (Auto) (1.50-4.80) K/mcL Seg Neutrophils % 92 H (38-78) % Lymphocytes % 3 L (15-49) % Absolute Neutrophils (1.80-8.00) K/mcL RBC Morphology Abnormal A (Normal) Anisocytosis 2+ A (None Seen) PT (11.9-14.5) sec INR (0.9-1.1) Carbon Dioxide (22-30) mmol/L BUN (8-23) mg/dL Creatinine (0.6-1.1) mg/dL Glucose (70-105) mg/dL Calcium (8.6-10.4) mg/dL Total Creatine Kinase 295 H (24-170) U/L C-Reactive Protein (0.03-0.80) mg/dL Urine Protein >=300 A (Negative) mg/dL Urine Ketones 5(trace) A (Negative) mg/dL Urine Occult Blood 2+(moderate) A (Negative) song/mcL Ur Leukocyte Esterase 3+(large) A (Negative) /ug Urine RBC 20 H (0-3) /hpf Urine WBC 180 H (0-4) /hpf Triple Phos Crystals Mod A (None) /hpf Urine Bacteria Few A (0) /hpf Urine Mucus Few A (None) /hpf 10/29/20 Range/Units 05:21 WBC (4.5-11.0) K/mcL Hgb (12.0-15.0) g/dL MCH (26.0-34.0) pg MCHC (31.0-36.0) g/dL RDW (11.5-14.5) % Neut % (Auto) (38.0-78.0) % Lymph % (Auto) (15.0-49.0) % Lymph # (Auto) (1.50-4.80) K/mcL Seg Neutrophils % (38-78) % Lymphocytes % (15-49) % Absolute Neutrophils (1.80-8.00) K/mcL RBC Morphology (Normal) Anisocytosis (None Seen) PT (11.9-14.5) sec INR (0.9-1.1) Carbon Dioxide 19 L (22-30) mmol/L BUN 52 H (8-23) mg/dL Creatinine 4.5 H (0.6-1.1) mg/dL Glucose 114 H (70-105) mg/dL Calcium 8.2 L (8.6-10.4) mg/dL Total Creatine Kinase (24-170) U/L C-Reactive Protein (0.03-0.80) mg/dL Urine Protein (Negative) mg/dL Urine Ketones (Negative) mg/dL Urine Occult Blood (Negative) song/mcL Ur Leukocyte Esterase (Negative) /ug Urine RBC (0-3) /hpf Urine WBC (0-4) /hpf Triple Phos Crystals (None) /hpf Urine Bacteria (0) /hpf Urine Mucus (None) /hpf Diabetes panel 10/29/20 Range/Units 05:21 Sodium 138 (133-145) mmol/L Potassium 4.4 (3.3-5.1) mmol/L Chloride 104 (96-108) mmol/L Carbon Dioxide 19 L (22-30) mmol/L BUN 52 H (8-23) mg/dL Creatinine 4.5 H (0.6-1.1) mg/dL Glucose 114 H (70-105) mg/dL Calcium 8.2 L (8.6-10.4) mg/dL Calcium panel 10/29/20 Range/Units 05:21 Calcium 8.2 L (8.6-10.4) mg/dL Pituitary panel 10/29/20 Range/Units 05:21 Sodium 138 (133-145) mmol/L Potassium 4.4 (3.3-5.1) mmol/L Chloride 104 (96-108) mmol/L Carbon Dioxide 19 L (22-30) mmol/L BUN 52 H (8-23) mg/dL Creatinine 4.5 H (0.6-1.1) mg/dL Glucose 114 H (70-105) mg/dL Calcium 8.2 L (8.6-10.4) mg/dL Adrenal panel 10/29/20 Range/Units 05:21 Sodium 138 (133-145) mmol/L Potassium 4.4 (3.3-5.1) mmol/L Chloride 104 (96-108) mmol/L Carbon Dioxide 19 L (22-30) mmol/L BUN 52 H (8-23) mg/dL Creatinine 4.5 H (0.6-1.1) mg/dL Glucose 114 H (70-105) mg/dL Calcium 8.2 L (8.6-10.4) mg/dL All other labs normal. A/P Assessment and plan (1) Mass of urinary bladder: Status: Acute Comment: Transurethral resection of bladder mass for biopsy (2) Acute renal failure: Status: Acute (3) Solitary kidney, acquired: Status: Chronic (4) Chronic kidney disease (CKD) stage G3b/A2, moderately decreased glomerular filtration rate (GFR) between 30-44 mL/min/1.73 square meter and albuminuria creatinine ratio between 30-299 mg/g: Status: Chronic (5) History of surgery: Status: Acute Comment: Tumors removed around bladder 08/2019 Dr. Jenaro Hayward (6) Calculus of left kidney: Status: Acute Time Spent With Patient Time: Total time spent is greater than 50% in coordination of care (as documented) at patient's floor/unit and/or counseling patient:
--- NOTE | 2020-10-29 10:31 | Brief Operative Note ---
Brief Operative Note Date of procedure: 10/29/20 Pre-op diagnosis: Bladder mass and decreased renal function Post-op diagnosis: same Procedure: Cystoscopy with attempted left stent placement Transurethral biopsy of bladder mass Grafts/Implants: No Anesthesia: GETA Findings: Large right wall bladder mass normal-appearing right ureter with minimal dilation of renal pelvis and calyces Complications: none Surgeon: Cristopher Cadena Estimated blood loss (cc): 0 Tourniquet Time (Minutes): 0 Specimens Removed/Pathology: other (Tissue bladder mass) Condition: stable Disposition: PACU
--- NOTE | 2020-10-29 10:43 | Operative Note ---
Operative Note Operative Note: Preop diagnosis--bladder mass, kidney stones, solitary left kidney, history of ureteral cancer resected in 2019, acute renal failure Surgeon--Cristopher Cadena Operation performed--cystoscopy, left retrograde ureterogram and pyelogram, stent placement, transurethral resection of part of bladder mass for biopsy, attempted stent replacement Anesthesia--General with LMA Complications--none Specimen--forwarded to lab, bladder mass Blood loss--50 mL Drain--none Indication--this patient was brought to the emergency room because multiple of multiple falls at home. During her evaluation she was found to have a rising creatinine. She had a history of right nephrectomy and right ureteral excision in [address] showed a large bladder mass on the right side of the bladder. There was a solitary left kidney with some nonobstructing stones in the lower calyx. There was some mild dilation of the renal pelvis and calyces but with no dilation of the ureter. She is in at this time for tissue diagnosis of the bladder mass and further evaluation of the ureter. Description the patient was placed on the operating table in a supine position. A timeout was called at which time we confirmed the patient, procedure, position and presence of antibiotic. She was then placed in a lithotomy position position after satisfactory induction of general anesthesia. After standard prep and drape a 25 [place] cystoscope was advanced into the bladder under direct vision. The urethra was normal. There was a large amount of necrotic tissue floating free in the bladder and a large right bladder mass. It was smooth and pink. At that point a search was made for the left ureter ureteral orifice. It was ultimately identified and an open tip catheter was inserted into the orifice. This was with some difficulty. It was in an abnormal location and appeared closer to the midline than anticipated. A retrograde study was done which showed a completely nonobstructed normal caliber right ureter from the ureteral orifice all the way up to the ureter ureteropelvic junction. A safety tip guidewire was passed through the open tip catheter and it was removed. The 7 [place] by 24 cm double-J stent was passed over the guidewire up to the kidney. With a slow withdrawal there was good coil in the kidney and when the wire was completely removed disengage the string from the resectoscope. Ultimately the stent was pulled out. At that point the scope was reinserted. The left ureteral orifice was no longer visible. There was an densely adherent clot in the area where it had been seen earlier. Multiple attempts were made to identify its location. Ultimately a blind passage of the wire which was 1 of several attempts went into the ureter. It was advanced up to the kidney and the stent was passed over the guidewire. It could not be advanced and was telescoping on the wire. At this point with the multiple attempts the bleeding had restarted and that was controlled reasonably well but it at that point the wire and the telescoped stent were removed. Further attempts at placing the wire blindly were unsuccessful and at that point it was discontinued with the understanding that there were no points of obstruction in the in the ureter.
[2020-10-29] MEDS ORDERED: fentaNYL 100 MCG/2 ML VIAL IV PRN (11:02)
[2020-10-29] MEDS ORDERED: ONDANSETRON 4 MG/2 ML VIAL IV PRN (11:02)
[2020-10-29] MEDS: LEVOTHYROXINE SODIUM 112 MCG TABLET PO SCH (11:02)
[2020-10-29] MEDS ORDERED: MEPERIDINE 25 MG/ML VIAL IV PRN (11:02)
[2020-10-29] MEDS ORDERED: OPIUM/BELLADONNA ALKALOIDS 60 MG SUPP.RECT PR PRN (11:02)
[2020-10-29] MEDS ORDERED: IPRATROPIUM/ALBUTEROL 3 ML AMPUL.NEB NEB PRN (11:02)
[2020-10-29] MEDS: ALLOPURINOL 100 MG TABLET PO SCH (11:02)
[2020-10-29] MEDS: LEVOTHYROXINE 25 MCG TABLET PO SCH (11:02)
[2020-10-29] MEDS: CLOPIDOGREL 75 MG TABLET PO SCH (11:02)
[2020-10-29] MEDS: VITAMIN D3 1,000 UNIT TABLET PO SCH (11:03)
[2020-10-29] MEDS: HEPARIN 5,000 UNIT/ML VIAL SQ SCH ×2 (11:03→20:07)
[2020-10-29] MEDS: FERROUS SULFATE 325 MG TABLET PO SCH (11:03)
[2020-10-29] MEDS: NYSTATIN POWDER BOTTLE 15GM TOPICAL SCH ×3 (11:04→20:19)
[2020-10-29] MEDS ORDERED: LACTATED RINGERS 1,000 ML IV SCH (11:15)
[2020-10-29] MEDS: ACETAMINOPHEN 325 MG TABLET PO PRN ×2 (13:36→20:06)
--- NOTE | 2020-10-29 15:29 | XRay Report ---
HISTORY: FINDINGS: IMPRESSION: 0.3 minutes of fluoroscopy time was used. Interpreted and Authenticated by: Matt Bernstein 10/29/20
--- NOTE | 2020-10-29 17:56 | Internal Med Progress Note ---
SUBJECTIVE Subjective Patient information: Note initiated : 10/29/20 at 5:50 pm Service Date, if different from initiated Date: [] Patient: Breonna Zelaya 70 y/o F admitted on 10/28/20 for fall. Chief Complaint: [] Interval history: Ms. Zelaya is a 70 year female with a history of hypertension, diabetes mellitus type 2, chronic kidney disease stage IIIb, stroke, hypothyroidism, right renal cell carcinoma status post nephrectomy in 1999, right urethral carcinoma status post ureterectomy in 2019, mild dementia lives alone at home and has caregivers presenting to the ED after multiple falls at home. In the ED, the patient was found to have severe kidney injury during the work-up hip pain after the fall. Trauma work-up included CT head, CT cervical spine, hip x-rays, pelvic CT scan which did not show acute fractures. Chest x-ray did show an asymmetric appearance of the lung with increased haziness on the left side. Pelvic CT showed a large bladder mass, mild left hydronephrosis. Recent labs showed a markedly elevated creatinine relative to the patient's baseline. The patient was admitted for acute kidney injury, UTI, bladder mass work-up and generalized weakness. 10/29 Urology procedure today with cystoscopy and attempted but unsuccessful left ureteral stent placement however urology does not feel there is left ureteral obstruction. Creatinine today unchanged at 4.5, minimal urine output, essentially no response to IV fluid challenge. C3 and C4 normal. Urine culture grew Aerococcus urinae. Physical exam Head: Atraumatic, normal inspection. Eyes: normal appearance, no scleral icterus. Neck: full ROM Respiratory: no respiratory distress. Cardiovascular: normal rate and rhythm, S1, S2. GI/Abdominal: soft, nontender, no guarding. Extremities: full range of motion, nontender. Neurological: CN II-XII intact, intact motor, intact sensation. Psychiatric: normal mood. Skin: stable hydradenitis suppurativa Constitutional Vitals: Vital Signs Temp Pulse Resp BP Pulse Ox 98.6 F 92 H 20 114/71 94 10/29/20 15:57 10/29/20 15:57 10/29/20 15:57 10/29/20 15:57 10/29/20 15:57 Period Temp Pulse Resp BP Sys/Penn Pulse Ox Last 24 Hr 97.8 F-98.8 F 84-99 14-22 93-158/65-83 92-100 Intake and Output 10/29/20 10/29/20 10/29/20 05:59 13:59 21:59 Intake Total 1240 2327 353 Output Total 3 2 Balance 1237 2327 351 Intake & Output: Intake & Output 10/29/20 10/29/20 10/29/20 05:59 13:59 21:59 Intake Total 1240 2327 353 Output Total 3 2 Balance 1237 2328 351 Intake: IV 1000 847 353 Sodium Chloride 0.9% 1,000 ml @ 1000 647 353 100 mls/hr IV .Q10H KATRIN Rx#: [id number] Oral 240 180 IV - Manual Only 1300 Output: # of times incontinent of urine 3 2 Other: Meal Lunch Percent of Meal Consumed 25% Feeding Ability Needs Supervision Urine Odor Foul # Voids 1 2 OBJ DATA Labs CBC & Chem 7: 10/29/20 05:21 10/29/20 05:21 Labs: Abnormal Lab Results 10/29/20 10/29/20 10/28/20 05:21 05:21 12:49 WBC Hgb 11.5 L MCH 25.1 L MCHC RDW 16.3 H Neut % (Auto) Lymph % (Auto) Lymph # (Auto) Seg Neutrophils % 92 H Lymphocytes % 3 L Absolute Neutrophils RBC Morphology Abnormal A Anisocytosis 2+ A PT INR Carbon Dioxide 19 L BUN 52 H Creatinine 4.5 H Glucose 114 H Calcium 8.2 L Total Creatine Kinase C-Reactive Protein Urine Protein >=300 A Urine Ketones 5(trace) A Urine Occult Blood 2+(moderate) A Ur Leukocyte Esterase 3+(large) A Urine RBC 20 H Urine WBC 180 H Triple Phos Crystals Mod A Urine Bacteria Few A Urine Mucus Few A 10/28/20 10/28/20 10/28/20 11:14 11:13 11:13 WBC Hgb MCH MCHC RDW Neut % (Auto) Lymph % (Auto) Lymph # (Auto) Seg Neutrophils % Lymphocytes % Absolute Neutrophils RBC Morphology Anisocytosis PT 15.5 H INR 1.2 H Carbon Dioxide BUN Creatinine Glucose Calcium Total Creatine Kinase 295 H C-Reactive Protein 29.60 H Urine Protein Urine Ketones Urine Occult Blood Ur Leukocyte Esterase Urine RBC Urine WBC Triple Phos Crystals Urine Bacteria Urine Mucus 10/28/20 11:13 WBC 12.3 H Hgb MCH 24.9 L MCHC 30.8 L RDW 16.2 H Neut % (Auto) 86.2 H Lymph % (Auto) 5.9 L Lymph # (Auto) 0.73 L Seg Neutrophils % Lymphocytes % Absolute Neutrophils 10.57 H RBC Morphology Anisocytosis PT INR Carbon Dioxide BUN Creatinine Glucose Calcium Total Creatine Kinase C-Reactive Protein Urine Protein Urine Ketones Urine Occult Blood Ur Leukocyte Esterase Urine RBC Urine WBC Triple Phos Crystals Urine Bacteria Urine Mucus Meds: Medications Acetaminophen (Acetaminophen 325 Mg Tablet) 650 mg PO Q4HP PRN; Protocol PRN Reason: Per Pain Protocol Last Admin: 10/29/20 13:36 Dose: 650 mg Documented by: Albuterol Sulfate (Albuterol Sulfate 200 Puff Inhaler) 2 puff INH Q4HP PRN PRN Reason: Shortness Of Breath Allopurinol (Allopurinol 100 Mg Tablet) 100 mg PO DAILY [facility] Last Admin: 10/29/20 11:02 Dose: 100 mg Documented by: Clopidogrel Bisulfate (Clopidogrel 75 Mg Tablet) 75 mg PO DAILY [facility] Last Admin: 10/29/20 11:02 Dose: 75 mg Documented by: Dextrose (Dextrose 50% 50 Ml Vial) 0 ml IV UD PRN PRN Reason: Hypoglycemia Diagnostic Test (Pha) (Accu-Chek 1 Each Strip) 1 each FS ACHS [facility] Last Admin: 10/29/20 17:29 Dose: 1 each Documented by: Docusate Sodium (Docusate Sodium 100 Mg Capsule) 100 mg PO BID [facility] Last Admin: 10/29/20 08:15 Dose: Not Given Documented by: Famotidine (Famotidine 20 Mg Tablet) 10 mg PO HS [facility] Last Admin: 10/28/20 21:48 Dose: 10 mg Documented by: Ferrous Sulfate (Ferrous Sulfate 325 Mg Tablet) 325 mg PO QDAY [facility] Last Admin: 10/29/20 11:03 Dose: 325 mg Documented by: Glucose (Dextrose 31 Gm Oral.Susp) 15 gm PO PRN PRN PRN Reason: Hypoglycemia Heparin Sodium (Porcine) (Heparin 5,000 Unit/Ml Vial) 5,000 unit SQ Q12 [facility] Last Admin: 10/29/20 11:03 Dose: 5,000 unit Documented by: Sodium Chloride (Sodium Chloride 0.9%) 1,000 mls @ 100 mls/hr IV .Q10H [facility] Last Infusion: 10/29/20 14:09 Dose: Infused Documented by: Ciprofloxacin (Cipro) 400 mg in 200 mls @ 200 mls/hr IV Q12H [facility]; Protocol Last Infusion: 10/29/20 09:22 Dose: Infused Documented by: Insulin Human Lispro (Insulin Lispro 1 Unit/0.01 Ml Unit) 0 unit SQ ACHS [facility]; Protocol Last Admin: 10/29/20 17:31 Dose: Not Given Documented by: Levothyroxine Sodium (Levothyroxine Sodium 112 Mcg Tablet) [facility] Admin: 10/29/20 11:02 Dose: 112 mcg Documented by: Levothyroxine Sodium (Levothyroxine 25 Mcg Tablet) 25 mcg PO QAMAC [facility] Last Admin: 10/29/20 11:02 Dose: 25 mcg Documented by: Montelukast Sodium (Montelukast 10 Mg Tablet) 10 mg PO [facility] Last Admin: 10/28/20 21:47 Dose: 10 mg Documented by: Nystatin (Nystatin Powder Bottle 15gm) 1 dose TOPICAL TID [facility] Last Admin: 10/29/20 15:25 Dose: 1 dose Documented by: Ondansetron HCl (Ondansetron 4 Mg/2 Ml Vial) 4 mg IV Q6HP PRN PRN Reason: Nausea And Vomiting Ipratropium [place] (Inhaler) 1 dose INH BID [facility] Last Admin: 10/29/20 11:04 Dose: Not Given Documented by: Senna (Sennosides 1 Tablet) 2 tab PO [facility] Last Admin: 10/28/20 21:48 Dose: Not Given Documented by: Sodium Chloride (0.9 % Sodium Chloride 10 Ml Syringe) 10 ml IV Q8 [facility] Last Admin: 10/29/20 12:19 Dose: Not Given Documented by: Vitamin D (Vitamin D3 1,000 Unit Tablet) 4,000 unit PO QDAY [facility] Last Admin: 10/29/20 11:03 Dose: 4,000 unit Documented by: A/P Narrative A/P Narrative: Assessment: 70 year female with a history of hypertension, diabetes mellitus type 2, chronic kidney disease stage IIIb, stroke, hypothyroidism, right renal cell carcinoma status post nephrectomy in 1999, right urethral carcinoma status post ureterectomy in 2019, mild dementia who lives alone at home was brought to the ED by EMS after multiple falls at home and found to have an acute kidney injury, UTI, bladder mass associated with left hydronephrosis. #Acute on chronic kidney disease stage 3b injury-possibly ATN #Left hydronephrosis #Large bladder mass #Acute cystitis d/t Aerococcus urinae #Asymmetric left lung opacity, possibly positional #Mildly elevated CK #Multiple falls at home #Diabetes mellitus type II #Hypertension #Hx of stroke #Gout #Dementia, mild #Pannus #Obesity BMI 40 #Hx of severe penicillin allergy #Hx of right renal cell carcinoma s/p nephrectomy 1999 #Hx of right urothelial carcinoma s/p ureterectomy 2019 #Hx of positive MPO-ANCA Plan -IV fluid, follow renal function, urine output, renally dose meds. -Ciprofloxacin IV BID d/t hx of severe penicillin allergy. -Follow bladder mass biopsy pathology. -Hold home Gabapentin, Tramadol, Lovastatin for now. -Renally adjusted home Allopurinol, Pepcid. -Continue home Plavix, Levothyroxine, Singulair. -SSI-low. -Nystatin topical for pannus. -Renal diet, NPO after midnight. -PT consult -Consider nephrology consult tomorrow if renal function does not improve. -DVT ppx: heparin SQ -Code status: -Disposition: TBD Time Spent With Patient Time: Total time spent is greater than 50% in coordination of care (as documented) at patient's floor/unit and/or counseling patient: QUALITY Stroke Symptom Onset Unknown: No VTE Deep Vein Thrombosis/Pulmonary Embolism Present on Admission: No
[2020-10-29] MEDS: FAMOTIDINE 20 MG TABLET PO SCH (20:03)
[2020-10-29] MEDS: SENNOSIDES 1 TABLET PO SCH (20:05)
[2020-10-29] MEDS: MONTELUKAST 10 MG TABLET PO SCH (20:05)
[2020-10-30] MEDS: 0.9 % SODIUM CHLORIDE 10 ML SYRINGE IV SCH ×2 (04:32→13:57)
[2020-10-30] MEDS: INSULIN LISPRO 1 UNIT/0.01 ML UNIT SQ SCH ×2 (07:13→13:33)
[2020-10-30] MEDS: LEVOTHYROXINE 25 MCG TABLET PO SCH (07:16)
[2020-10-30] MEDS: LEVOTHYROXINE SODIUM 112 MCG TABLET PO SCH (07:16)
--- NOTE | 2020-10-30 07:51 | General Surgery Progress Note ---
SUBJECTIVE Subjective Patient information: Note initiated : 10/30/20 at 7:41 am Service Date, if different from initiated Date: [] Patient: Breonna eZlaya 70 y/o F admitted on 10/28/20 for fall. Chief Complaint: []back pain from fall Constitutional Vitals: Vital Signs Temp Pulse Resp BP Pulse Ox 99 F 98 H 18 121/63 92 10/30/20 03:50 10/30/20 03:50 10/30/20 03:50 10/30/20 03:50 10/30/20 03:50 Period Temp Pulse Resp BP Sys/Penn Pulse Ox Last 24 Hr 98.1 F-99.2 F 84-98 14-22 93-158/52-83 90-100 Intake and Output 10/29/20 10/30/20 10/30/20 21:59 05:59 13:59 Intake Total 553 200 Output Total 2 2 Balance 551 198 Weight 220 lb Intake & Output: Intake & Output 10/29/20 10/30/20 10/30/20 21:59 05:59 13:59 Intake Total 553 200 Output Total 2 2 Balance 551 198 Weight 220 lb Intake: IV 553 Sodium Chloride 0.9% 1,000 ml @ 353 100 mls/hr IV .Q10H KATRIN Rx#: [id number] Oral 200 Output: # of times incontinent of urine 2 2 Other: Urine Odor Foul # Voids 2 A/P Assessment and plan (1) Calculus of left kidney: Status: Acute Comment: non-obstructing, normal retrograde ureterogram Lt (2) Mass of urinary bladder: Status: Acute Comment: Transurethral resection of bladder mass for biopsy, path pending (3) Acute renal failure: Status: Acute Comment: today's creatinine pending. yesterday 4.5 (4) Chronic kidney disease (CKD) stage G3b/A2, moderately decreased glomerular filtration rate (GFR) between 30-44 mL/min/1.73 square meter and albuminuria creatinine ratio between 30-299 mg/g: Status: Chronic (5) History of surgery: Status: Acute Comment: Tumors removed around bladder 08/2019 Dr. Jenaro Hayward. Right ureterectomy (6) Cancer of kidney: Status: Chronic Comment: Transitional Cell, 2000 (7) Solitary kidney, acquired: Status: Chronic (8) Fall: Status: Acute Qualifiers: Encounter type: initial encounter Qualified Code(s): W19.XXXA - Unspecified fall, initial encounter Time Spent With Patient Time: Total time spent is greater than 50% in coordination of care (as documented) at patient's floor/unit and/or counseling patient:
[2020-10-30 08:59] LABS: Basophils # (Auto) 0.03 K/mcL (0.00-0.20); Basophils % (Auto) 0.2 % (0.0-2.0); Eosinophils # (Auto) 0 K/mcL (0.00-0.70); Eosinophils % (Auto) 0 % (0.0-7.0); Hematocrit 38.2 % (36.0-48.0); Hemoglobin 12.3 g/dL (12.0-15.0); Lymphocytes % (Auto) 2.7 % (15.0-49.0); Mean Cell Volume 78.6 fL (80.0-100.0); Mean Corpuscular HGB Conc 32.2 g/dL (31.0-36.0); Mean Platelet Volume 10.3 fL (7.4-10.4); Monocytes # (Auto) 0.92 K/mcL (0.10-0.90); Monocytes % (Auto) 6.2 % (1.0-12.0); Neutrophils % (Auto) 90.9 % (38.0-78.0); Platelet Count 289 K/mcL (140-440); RBC 4.86 M/mcL (4.00-5.20); Red Cell Distribution Width 16.3 % (11.5-14.5); WBC 14.8 K/mcL (4.5-11.0)
[2020-10-30 09:29] LABS: Albumin 2.1 gm/dL (3.2-5.2); Calcium 8.5 mg/dL (8.6-10.4); Phosphorous 7.2 mg/dL (2.5-4.5)
[2020-10-30] MEDS: 0.9 % SODIUM CHLORIDE 1,000 ML IV SCH (10:26)
[2020-10-30] MEDS: CIPROFLOXACIN 400 MG/200 ML BAG IV SCH (10:28)
--- NOTE | 2020-10-30 10:47 | Nephrology Consult Note ---
HPI Data of Consult Patient: known to practice within the last 3 years Consult date: 10/30/20 Requesting physician: Roque Barros Primary Care Provider: Yury Valdez MD Consult Narrative Chief complaint: Weakness Reason for consult: Acute kidney injury on chronic kidney disease stage 3b History of present illness: Breonna Zelaya is a 70-year-old female with chronic kidney disease stage 3b, a history of renal carcinoma s/p right nephrectomy and radiotherapy in 1999 and s/p right ureterectomy for high-grade invasive urothelial carcinoma on 08/10/19, history of positive MPO-ANCA, diabetes mellitus type 2 and hypertension admitted on 10/29/20. She presented to Ed for fall and diagnosed with a bladder mass during workup. Nephrology consultation was requested for acute kidney injury. cc:: CC: Cristopher Cadena MD Constitutional Constitutional: Present frequent falls and weakness EENT Nose, mouth and throat: Absent nasal congestion and sore throat Cardiovascular Cardiovascular: Absent chest pain and palpatations Respiratory Respiratory: Absent cough and dyspnea Gastrointestinal Gastrointestinal: Absent nausea and vomiting Genitourinary Genitourinary: Present hematuria Integumentary Integumentary: Absent rash Neurological Neurological: Present weakness; Absent confusion Psychiatric Psychiatric: Absent anxiety and panic attacks Hematologic/Lymphatic Hematologic/Lymphatic: Absent easy bleeding Allergic/Immunologic Allergic/Immunologic: Absent throat swelling and uticaria PFSH PFSH All Active Problems (Updated 10/30/20 @ 10:45 by Calvin Mosqueda MD) Metabolic acidosis (Acute) Acute renal failure with acute tubular necrosis superimposed on stage 3b chronic kidney disease (Acute) Calculus of left kidney (Acute) Mass of urinary bladder (Acute) Fall (Acute) Contusion of knee, left (Acute) Contusion of hip, left (Acute) Acute renal failure (Acute) Acute dehydration (Acute) Acute UTI (Acute) Gross hematuria (Acute) Vitamin D deficiency (Chronic) Left knee pain (Acute) Hypotensive episode (Acute) Dizziness (Acute) Iron deficiency anemia (Chronic) Secondary hyperparathyroidism of renal origin (Chronic) Anemia in stage 3b chronic kidney disease (Acute) Solitary kidney, acquired (Chronic) Chronic kidney disease (CKD) stage G3b/A2, moderately decreased glomerular filtration rate (GFR) between 30-44 mL/min/1.73 square meter and albuminuria creatinine ratio between 30-299 mg/g (Chronic) History of surgery (Acute) Hematuria (Acute) Postoperative complication of skin involving drainage from surgical wound (Acute) Initial Medicare annual wellness visit (Acute) Albuminuria (Chronic) Cancer of kidney (Chronic) Chronic ear infection (Chronic) exterminator helper termite (current) use of anticoagulants (Chronic) Low back pain (Chronic) Dementia, senile (Chronic) Long-term insulin use (Chronic) MCFP (current) use of opiate analgesic (Chronic) Osteoarthritis of knees, bilateral (Chronic) Osteoarthritis of hips, bilateral (Chronic) DDD (degenerative disc disease), lumbar (Chronic) Neuropathy (Chronic) Gout (Chronic) Dementia (Chronic) Sinusitis (Acute) Carpal tunnel syndrome, bilateral (Chronic) Tobacco use (Chronic) Paresthesia (Acute) Sinus drainage (Chronic) P-ANCA and MPO antibodies positive (Acute) Weight loss (Chronic) Fatigue (Chronic) Thyroid disorder (Chronic) Palpitations (Chronic) Hypercholesterolemia (Chronic) FH: kidney cancer (Chronic) 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) Stroke (Chronic) Balance problem (Chronic) Asthma (Chronic) Osteoarthritis (Chronic) GERD (gastroesophageal reflux disease) (Chronic) Hypothyroidism (Chronic) Hyperlipidemia, mixed (Chronic) Hypertension (Chronic) Abnormal finding on breast imaging (Chronic) 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) Osteopenia (Chronic) Back pain (Chronic) Joint pain, knee (Chronic) Right hip pain (Chronic) Dry mouth (Chronic) Pain in right shoulder (Chronic) Ear infection (Chronic) Acute cystitis with hematuria (Chronic) Strain of right hip (Chronic) Urinary tract infection (Chronic) Medical History Abnormal finding on breast imaging Acute cystitis with hematuria Albuminuria Asthma Back pain Balance problem Cancer of kidney Transitional Cell Carpal tunnel syndrome, bilateral Chronic ear infection DDD (degenerative disc disease), lumbar Dementia Dementia, senile Dizziness Dry mouth Ear infection left Fatigue FH: kidney cancer GERD (gastroesophageal reflux disease) Gout Hypercholesterolemia Hyperlipidemia, mixed Hypertension Hypotensive episode Hypothyroidism Joint pain, knee exterminator helper termite (current) use of anticoagulants MCFP (current) use of opiate analgesic Long-term insulin use Low back pain 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 cerebral infarction Neuropathy Osteoarthritis Osteoarthritis of hips, bilateral Osteoarthritis of knees, bilateral Osteopenia P-ANCA and MPO antibodies positive Pain in right shoulder Palpitations Paresthesia Right hip pain Sinus drainage Stroke Thyroid disorder Tobacco use Tobacco use Type 2 diabetes mellitus with polyneuropathy Weight loss Surgical History History of appendectomy (~1978) History of cholecystectomy (~1999) History of hysterectomy (~1978) History of surgery 08/10/2019-right ureterectomy History of surgery Tumors removed around bladder 08/2019 Dr. Jenaro Hayward History of tonsillectomy (~1954) S/p nephrectomy right Family History Father Colon cancer Heart disease Prostate cancer Brother Thyroid disorder Sister Multiple sclerosis Mother Heart disease Social History marital status: occupational status: disabled physical activity: walking alcohol intake frequency: holiday/special occasion only substance use type: does not use MEDS/ALLERGIES Home Medications and Allergies Home Medications Medication Instructions Recorded Confirmed Type albuterol sulfate 2 puff INH Q4HP PRN 03/08/17 10/28/20 History ipratropium bromide 1 puff INH BID 03/08/17 10/28/20 History insulin aspart U-100 100 unit/mL 4 unit SUB-Q .Before Meal #15 ml 06/11/19 10/28/20 Rx (3 mL) subcutaneous pen blood sugar diagnostic #100 each 02/01/20 10/28/20 Rx blood-glucose meter #1 each 02/01/20 10/28/20 Rx levothyroxine 137 mcg tablet 137 mcg PO QDAY #90 tab 02/07/20 10/28/20 Rx clopidogrel 75 mg tablet 75 mg PO DAILY #90 tab 05/02/20 10/28/20 Rx tramadol 50 mg tablet 100 mg PO QID PRN #120 tab 08/14/20 10/28/20 Rx cholecalciferol (vitamin D3) 100 4,000 unit PO QDAY #90 cap 10/10/20 10/28/20 Rx mcg (4,000 unit) capsule ferrous sulfate 325 mg (65 mg 325 mg PO QDAY #90 tab 10/10/20 10/28/20 Rx iron) tablet allopurinol 100 mg PO TID 10/28/20 10/28/20 History famotidine 20 mg PO BID 10/28/20 10/28/20 History gabapentin 1,200 mg PO HS 10/28/20 10/28/20 History gabapentin 600 mg PO DAILY 10/28/20 10/28/20 History lovastatin 20 mg PO HS 10/28/20 10/28/20 History montelukast 10 mg PO HS 10/28/20 10/28/20 History Allergies Allergy/AdvReac Type Severity Reaction Status Date / Time Penicillins Allergy Severe Anaphylaxis Verified 10/10/20 14:08 hydrogen peroxide Allergy Intermediate "chews Verified 10/10/20 14:08 skin up" nitroglycerin AdvReac Severe Hypotension Verified 10/10/20 14:08 methadone [Methadone] AdvReac Unknown Other Verified 10/10/20 14:08 plastic Allergy Intermediate Swelling Uncoded 10/10/20 14:08 Physical Examination Vital Signs Vital signs: Temp Pulse Resp BP Pulse Ox 99.0 F 97 H 20 135/76 91 10/30/20 08:00 10/30/20 08:00 10/30/20 08:00 10/30/20 08:00 10/30/20 08:00 General Appearance General appearance: appears started age and fatigue EENT EENT: mucous membranes dry Respiratory Respiratory: clear Cardiovascular Cardiology: no edema Gastrointestinal Gastrointestinal: obese Integumentary Integumentary: no rash Neurologic Neurologic: alert and oriented x3 Psychiatric Psychiatric: mood/affect appropriate and cooperative Results Lab Results Result Diagrams: 10/30/20 08:00 10/30/20 08:00 Lab results: Most recent lab results Creatinine 5.9 mg/dL (0.6-1.1) H* 10/30/20 08:00 Calcium 8.5 mg/dL (8.6-10.4) L 10/30/20 08:00 Phosphorus 7.2 mg/dL (2.5-4.5) H* 10/30/20 08:00 A/P Assessment and plan (1) Acute renal failure with acute tubular necrosis superimposed on stage 3b chronic kidney disease: Assessment and plan: Breonna Zelaya is a 70-year-old female with chronic kidney disease stage 3b, a history of renal carcinoma s/p right nephrectomy and radiotherapy in 1999 and s/p right ureterectomy for high-grade invasive urothelial carcinoma on 08/10/19, history of positive MPO-ANCA, diabetes mellitus type 2 and hypertension admitted on 10/29/20. She presented to Ed for fall and diagnosed with a bladder mass during workup. Nephrology consultation was requested for acute kidney injury. Acute kidney injury on chronic kidney disease stage 3b with metabolic acidosis present on arrival. She has a history of negative PR3-ANCA and positive MPO- ANCA without clinical symptoms of vasculitis. Kidney biopsy was discussed with the patient, but not done due to increased risk with solitary kidney and low benefits with stable kidney function without clinical evidence of vasculitis. Cystoscopy, left retrograde ureterogram and pyelogram, stent placement, transurethral resection of part of bladder mass for biopsy, attempted stent replacement on 10/29/20. Progress: Serum creatinine increased from 4.5 to 5.9 in the past 24 hours. Baseline serum creatinine: 1.1 to 1.6 (eGFR 35-50) Metabolic acidosis. No significant fluid overload. No significant uremic symptoms. Recommendations/Plan: Acute hemodialysis after hemodialysis catheter placement which requires transfer to a hospital with IR. She prefers [facility] since it is closer. Avoid NSAIDs, nephrotoxic medications and IV contrast. Monitor BMP and urine output. Status: Acute (2) Metabolic acidosis: Status: Acute Time Spent With Patient Time: Total time spent is greater than 50% in coordination of care (as documented) at patient's floor/unit and/or counseling patient:
[2020-10-30] MEDS: DOCUSATE SODIUM 100 MG CAPSULE PO SCH (11:53)
[2020-10-30] MEDS: FERROUS SULFATE 325 MG TABLET PO SCH (11:53)
[2020-10-30] MEDS: CLOPIDOGREL 75 MG TABLET PO SCH (11:54)
[2020-10-30] MEDS: VITAMIN D3 1,000 UNIT TABLET PO SCH (11:54)
[2020-10-30] MEDS: ALLOPURINOL 100 MG TABLET PO SCH (11:56)
[2020-10-30] MEDS: HEPARIN 5,000 UNIT/ML VIAL SQ SCH (13:14)
--- NOTE | 2020-10-30 13:17 | Discharge Summary ---
Discharge Provider Provider Patient information: Note initiated : 10/30/20 at 1:07 pm Service Date, if different from initiated Date: [] Patient: Breonna Zelaya 70 y/o F admitted on 10/28/20 for fall. Chief Complaint: [] Date of admission: 10/28/20 16:50 Discharge date: 10/30/20 Primary care physician: Yury Valdez MD Consults: 10/28/20 Consult to Physician [CONS] Stat Comment: Consulting Provider: oRque Barros Reason For Exam: Physician to Consult 10/28/20 17:15 Consult to Physician [CONS] Stat Comment: Consulting Provider: Cristopher Cadena Reason For Exam: Physician to Consult 10/30/20 10:16 Consult to Physician [CONS] Routine Comment: Consulting Provider: Calvin Mosqueda Reason For Exam: Physician to Consult Discharge Meds Discharge Medications Home Medications albuterol sulfate 2 puff INH Q4HP PRN 03/08/17 [History Confirmed 10/28/20 Last Taken 06/03/19 05:00] ipratropium bromide 1 puff INH BID 03/08/17 [History Confirmed 10/28/20 Last Taken 10/28/20 1 Dose] insulin aspart U-100 100 unit/mL (3 mL) subcutaneous pen 4 unit SUB-Q .Before Meal #15 ml 06/11/19 [Rx Confirmed 10/28/20 Last Taken 10/28/20 4 units] blood sugar diagnostic #100 each 02/01/20 [Rx Confirmed 10/28/20 Last Taken Unknown] blood-glucose meter #1 each 02/01/20 [Rx Confirmed 10/28/20 Last Taken Unknown] levothyroxine 137 mcg tablet 137 mcg PO QDAY #90 tab 02/07/20 [Rx Confirmed 10/28/20 Last Taken 10/28/20 137 mcg] clopidogrel 75 mg tablet 75 mg PO DAILY #90 tab 05/02/20 [Rx Confirmed 10/28/20 Last Taken 10/28/20 75 mg] cholecalciferol (vitamin D3) 100 mcg (4,000 unit) capsule 4,000 unit PO QDAY #90 cap 10/10/20 [Rx Confirmed 10/28/20 Last Taken 10/28/20 4000 units] ferrous sulfate 325 mg (65 mg iron) tablet 325 mg PO QDAY #90 tab 10/10/20 [Rx Confirmed 10/28/20 Last Taken 10/28/20 325 mg] lovastatin 20 mg PO HS 10/28/20 [History Confirmed 10/28/20 Last Taken 10/28/20 20 mg] montelukast 10 mg PO HS 10/28/20 [History Confirmed 10/28/20 Last Taken 10/28/20 10 mg] allopurinol 100 mg PO DAILY #30 tab 10/30/20 [Rx Last Taken Unknown] ciprofloxacin HCl 500 mg PO QDAY 2 Days #2 tab 10/30/20 [Rx Last Taken Unknown] famotidine 10 mg PO HS #30 tab 10/30/20 [Rx Last Taken Unknown] COURSE Hospital Course Hospital course: Ms. Zelaya is a 70 year female with a history of hypertension, diabetes mellitus type 2, chronic kidney disease stage IIIb, stroke, hypothyroidism, right renal cell carcinoma status post nephrectomy in 1999, right urethral carcinoma status post ureterectomy in 2019, mild dementia lives alone at home and has caregivers presenting to the ED after multiple falls at home. In the ED, the patient was found to have severe kidney injury during the work-up hip pain after the fall. Trauma work-up included CT head, CT cervical spine, hip x-rays, pelvic CT scan which did not show acute fractures in the initial report. Chest x-ray did show an asymmetric appearance of the lung with increased haziness on the left side. Pelvic CT showed a large bladder mass, mild left hydronephrosis. Recent labs showed a markedly elevated creatinine relative to the patient's baseline. The patient was admitted for acute kidney injury, UTI, bladder mass work-up and generalized weakness. 10/29 Urology procedure today with cystoscopy and attempted but unsuccessful left ureteral stent placement however urology does not feel there is left ureteral obstruction. Creatinine today unchanged at 4.5, minimal urine output, essentially no response to IV fluid challenge. C3 and C4 normal. Urine culture grew Aerococcus urinae. Repeat chest xray much better today so prior xray findings likely artifactual. 10/30 Renal function worsening despite IV fluid challenge, the patient is making very little urine. Nephrology consulted, the patient was seen by Dr Mosqueda who recommended transfer to [facility] for tunnelled catheter placement for acute hemodialysis. Ortho reviewed CT pelvis and did not recommend any mobility restrictions for possible left acetabular fracture noted in addendum report. Discussed with the [facility] transfer center and application support consultant hospitalist, the patient was accepted. Discharged to [facility] with renally adjusted home medications however holding gabapentin and tramadol for mild confusion. Two more days of Ciprofloxacin for acute cystitis post cystoscopy on 10/29/20. Post hospital discharge; -Tunneled catheter at [facility] for acute hemodialysis. -Follow up bladder mass pathology. Discharge diagnosis: Acute on chronic kidney injury likely due to acute tubular necrosis Secondary discharge diagnosis: Bladder mass Mild left hydronephrosis Time Spent with Patient Time attestation: Total time spent providing and/or coordinating discharge services: EXAM Constitutional Vitals: Temp Pulse Resp BP Pulse Ox 98.3 F 98 H 20 127/80 91 10/30/20 12:00 10/30/20 12:00 10/30/20 12:00 10/30/20 12:00 10/30/20 12:00 Additional findings Additional findings: Head: Atraumatic, normal inspection. Eyes: normal appearance, no scleral icterus. Neck: full ROM Respiratory: no respiratory distress. Cardiovascular: normal rate and rhythm, S1, S2. GI/Abdominal: soft, nontender, no guarding. Extremities: full range of motion, nontender. Neurological: CN II-XII intact, intact motor, intact sensation. Psychiatric: normal mood. Skin: warm, normal color Discharge Data Data Completed and Pending Labs on day of discharge: Labs from last 24 hours 10/30/20 10/30/20 08:00 08:00 WBC 14.8 H RBC 4.86 Hgb 12.3 Hct 38.2 MCV 78.6 L MCH 25.3 L MCHC 32.2 RDW 16.3 H Plt Count 289 MPV 10.3 Neut % (Auto) 90.9 H Lymph % (Auto) 2.7 L [place] % (Auto) 6.2 Eos % (Auto) 0 Baso % (Auto) 0.2 Lymph # (Auto) 0.40 L [place] # (Auto) 0.92 H Eos # (Auto) 0 Baso # (Auto) 0.03 Absolute Neutrophils 13.41 H Sodium 133 Potassium 5.1 Chloride 103 Carbon Dioxide 15 L Anion Gap 15.0 BUN 58 H Creatinine 5.9 H* GFR Calculation 7 Glucose 136 H Calcium 8.5 L Phosphorus 7.2 H* Albumin 2.1 L Discharge Plan Patient/Caregiver Discharge Instructions Activity: as per physical therapy Diet: NPO Prescriptions: New allopurinol 100 mg Tablet 100 mg PO DAILY Qty: 30 RF: 0 famotidine 20 mg Tablet 10 mg PO HS Qty: 30 RF: 0 ciprofloxacin HCl 500 mg tablet 500 mg PO QDAY 2 Days Qty: 2 RF: 0 Continued insulin aspart U-100 [Novolog Flexpen U-100 Insulin] 100 unit/mL (3 mL) insulin pen 4 unit SUB-Q .Before Meal Qty: 15 RF: 4 (DME) blood-glucose meter [OneTouch Ultra2 Meter] Misc See Rx Instructions .ROUTE .MEDSUPPLY Qty: 1 RF: 0 (DME) OneTouch Ultra Blue Test Strip Strip See Rx Instructions .ROUTE .MEDSUPPLY Qty: 100 RF: 11 levothyroxine 137 mcg tablet 137 mcg PO QDAY Qty: 90 RF: 3 clopidogrel 75 mg tablet 75 mg PO DAILY Qty: 90 RF: 4 cholecalciferol (vitamin D3) 100 mcg (4,000 unit) capsule 4,000 unit PO QDAY Qty: 90 RF: 4 ferrous sulfate 325 mg (65 mg iron) tablet 325 mg PO QDAY Qty: 90 RF: 4 albuterol sulfate 1 PUFF inhaler 2 puff INH Q4HP PRN (Reason: Shortness Of Breath) RF: 0 ipratropium bromide 1 PUFF inhaler 1 puff INH BID RF: 0 montelukast 10 mg tablet 10 mg PO HS RF: 0 lovastatin 20 mg tablet 20 mg PO HS RF: 0 Discontinued tramadol 50 mg tablet 100 mg PO QID PRN (Reason: Pain) Qty: 120 RF: 2 gabapentin 600 mg tablet 600 mg PO DAILY RF: 0 gabapentin 600 mg tablet 1,200 mg PO HS RF: 0 allopurinol 100 mg tablet 100 mg PO TID RF: 0 famotidine 20 mg tablet 20 mg PO BID RF: 0 Follow Up Plan Follow up with: Yury Valdez MD [Primary Care Provider] - Patient Disposition: [facility] Prognosis: Fair Rehab Potential: Fair Overall status at discharge: patient is progressing back to baseline Discharge Orders: Discharge Order (Routine); Ordered 10/30/20 Ordered By: Roque Barros QUALITY VTE Deep Vein Thrombosis/Pulmonary Embolism Present on Admission: No
[2020-10-30] MEDS: NYSTATIN POWDER BOTTLE 15GM TOPICAL SCH ×2 (13:26→14:44)
--- NOTE | 2020-11-01 09:30 | Surgical Pathology Report ---
Histology Microscopic Diagnosis Specimen A- BLADDER, MASS, BIOPSY: --- INVASIVE HIGH GRADE UROTHELIAL CARCINOMA WITH MARKED NECROSIS; SEE COMMENT. --- MUSCULARIS PROPRIA PRESENT AND INVOLVED BY INVASIVE CARCINOMA. 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 The current biopsy contains a poorly differentiated carcinoma infiltrating soft tissue and thick bands of smooth muscle consistent with muscularis propria. Immunohistochemical studies are performed and the neoplastic cells are strongly and uniformly positive for GATA3, CK20 and p63, and focally positive for CK7 and CK5/6. The morphologic and immunophenotypic features are compatible with a poorly differentiated/high grade urothelial carcinoma. Clinical History Bladder mass. Microscopic Description The following immunohistochemical studies are performed: Cell Population: Neoplastic cells and muscle. CK20: Uniformly positive. CK7: Focally positive. GATA3: Uniformly positive. p63: Uniformly positive. CK5/6: Focally positive. SM-MHC: Highlights smooth muscle bundles surrounded by invasive carcinoma. Interpretation: Compatible with invasive urothelial carcinoma involving muscularis propria. Gross Description Received in formalin labeled bladder mass, are multiple fragments of pink-quinones to ashley-quinones tissue in aggregate 2.5 x 2.2 x 0.4 cm. Totally submitted in one cassette. ([id number]) IHC Disclaimer Some of the tests reported may not have been cleared or approved by the U.S. Food Drug Administration (FDA). However, the FDA has determined that such clearance or approval is not necessary. Pursuant to the requirements of CLIA, this laboratory has established and verified the accuracy and precision of all tests, and additional information about these tests is available upon request. All technical controls are adequate. Electronically Signed Luis Enrique Wilkerson MD, FCAP Electronically Signed 11/01/2020 09:29
== END 2020-10-30 14:30 | disposition short-term general hospital (02) | DRG 660 ==
LOC: ED 11:04 → MEDSUR 16:50
PROVIDERS: ADMIT Urology; ATTEND Internal Medicine